=== PATIENT | male | born 1970 | race Caucasian/White ===

== ENCOUNTER 2020-02-01 07:59 | Outpatient (CLI) | payer OTHER, SELFPAY ==
--- NOTE | 2020-02-01 08:00 | USCV_ITS ---
Ilan Ross Age: 49 Gender: M : 1970 Exam Date: 02/01/2020 08:17 Ordering Phys: Zac Jenkins MD Technologist: Tim Baez [place] [facility] [place]: DYSPNEA ON EXERTION BP: 135 / 80 HR: 92 Rhythm: Sinus Technical Quality: Adequate MEASUREMENTS (Male / Female) Normal Values 2D ECHO LVOT Diameter 2.0 cm LV Ejection Fraction MOD 2C 65.5 % LV Ejection Fraction 2C AL 65.6 % LA Diameter 4.4 cm LA Width 4.4 cm LA Height 5.4 cm RA Width 3.4 cm RA Height 5.6 cm Aorta at Sinotubular Diameter 1.3 cm M-MODE LV Diastolic Diameter MM 4.9 cm 4.2 - 5.9 / 3.9 - 5.3 cm LV Systolic Diameter MM 3.3 cm LV Ejection Fraction MM Teich 62.2 % IVS Diastolic Thickness MM 1.2 cm 0.6 - 1.0 / 0.6 - 0.9 cm IVS Systolic Thickness MM 1.6 cm LVPW Diastolic Thickness MM 1.3 cm 0.6 - 1.0 / 0.6 - 0.9 cm LVPW Systolic Thickness MM 1.9 cm RV Diastolic Diameter MM 2.7 cm Aortic Annulus Diameter 4.7 cm LA Ao Ratio MM 0.9 MV E Point Septal Separation 0.5 cm DOPPLER AV Peak Velocity 104.0 cm/s MV Area PHT 3.7 cm squared Mitral E to A Ratio 1.4 MV E' Velocity 46.0 cm/s Mitral E to MV E' Ratio 5.8 Mitral E to LV E' Lateral Ratio 5.5 Mitral E to LV E' Septal Ratio 6.2 TR Peak Velocity 210.0 cm/s TR Peak Gradient 17.6 mmHg TV Peak E Velocity 93.0 cm/s Right Atrial Pressure 5.0 mmHg Pulmonary Artery Systolic Pressu 22.6 mmHg PV Peak Velocity 100.0 cm/s FINDINGS Left Ventricle Normal left ventricular cavity size. Normal left ventricular systolic function. No regional wall motion abnormalities. Left ventricular ejection fraction is estimated at 62 %. Grade II/IV diastolic dysfunction, moderately elevated filling pressures. Right Ventricle The right ventricle is normal in size and function. Right Atrium The right atrium is normal in size. Left Atrium The left atrium is normal in size. Mitral Valve Structurally normal mitral valve without significant stenosis or prolapse. There is no mitral regurgitation. Aortic Valve Mild aortic valve calcification. No aortic valve stenosis. Trace aortic valve regurgitation. Tricuspid Valve Trace to mild tricuspid valve regurgitation. Pulmonic Valve Structurally normal pulmonic valve without significant stenosis. There is no pulmonic regurgitation. Pericardium Normal pericardium without effusion. Aorta Normal ascending aorta dimension. CONCLUSIONS 1-Normal left ventricular cavity size. Normal left ventricular systolic function. No regional wall motion abnormalities. Left ventricular ejection fraction is estimated at 62 %. Grade II/IV diastolic dysfunction, moderately elevated filling pressures. 2-Mild aortic valve calcification. No aortic valve stenosis. Trace aortic valve regurgitation. 3-Trace to mild tricuspid valve regurgitation. 4-There is no pericardial effusion. 5-Pulmonary artery systolic pressure is within normal limits. 6-Right atrial pressure is around 5 mm of mercury. 7-No significant change since the prior echocardiogram study of 02/15/2015.. Zac Jenkins MD (Electronically Signed) Final Date: 01 February 2020 20:08 S
== END 2020-02-01 08:00 | disposition home or self-care (01) ==
LOC: US 08:02
PROVIDERS: PCP Family Medicine; Visit Provider Internal Medicine Cardiovascular Disease
DX: R06.00 Dyspnea, unspecified (principal); I35.1 Nonrheumatic aortic (valve) insufficiency; I07.1 Rheumatic tricuspid insufficiency
CPT/HCPCS: 93306

== ENCOUNTER 2020-06-03 18:39 | Inpatient (IN) | payer OTHER, SELFPAY ==
[2020-06-03 18:59] VITALS: BP 142/96; PULSE 74; RESP 25; TEMP 36.7; O2SAT 99; BMI 40.4
--- NOTE | 2020-06-03 19:10 | ECG_ITS ---
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 Measurements Intervals [place] Rate: 87 P: SD: QRS: 34 QRSD: 109 T: 95 QT: 347 QTc: 419 Interpretive Statements ATRIAL FIBRILLATION NONSPECIFIC T-WAVE ABNORMALITY Compared to ECG 02/15/2015 05:58:28 T-wave abnormality now present Sinus rhythm no longer present Myocardial infarct finding no longer present Electronically Signed On 06-04-2020 17:04:44 APIARIST by Godwin Wilkes M.D. [id number]
--- NOTE | 2020-06-03 19:10 | XRR_ITS ---
PROCEDURE INFORMATION: Exam: XR Chest, 1 View Exam date and time: 06/03/2020 7:12 PM Age: 50 years old Clinical indication: Chest pain; Additional info: Cp TECHNIQUE: Imaging protocol: XR of the chest Views: 1 view. COMPARISON: CT chest [facility] [id number] 03/12/2016 7:51 AM FINDINGS: Lungs: Unremarkable. No consolidation. Pleural spaces: Unremarkable. No pleural effusion. No pneumothorax. Heart/Mediastinum: Unremarkable. No cardiomegaly. Bones/joints: Unremarkable. XR/XR chest 1V portable [id number] IMPRESSION: No acute findings.
--- NOTE | 2020-06-03 19:13 | ED_ITS ---
HPI - Chest Pain General: Chief Complaint: Chest Pain Stated Complaint: chest pain Time Seen by Provider: 06/03/20 18:57 History of Present Illness: HPI narrative: 50-year-old male presenting with chest discomfort. He has a history of atrial fibrillation and coronary artery disease status post stents x4. His last cath was 5 years ago. No stress testing since. He has been doing well otherwise, but tested positive for COVID- 19 earlier in the month. He has passed his quarantine and had essentially recovered. The pain radiates to his jaw and down his right arm, he was nauseated, diaphoretic, and short of breath. Pain was 8 out of 10 on arrival currently 3 out of 10. 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 THERAPIST Onset (ago): hour(s) Timing of current episode: constant Prior episodes: Yes Onset: during rest Pain location: substernal Pain radiation: right arm and jaw/teeth Severity: moderate Quality: tightness, aching and heaviness Relieving factors: nothing Exacerbating factors: exertion Context: recent illness Associated symptoms: Reports diaphoresis, dyspnea and nausea; Deny abdominal pain, fever(s), leg edema, palpitations or vomiting Review of Systems Const: Reports: diaphoresis; Denies: fever(s) Eyes: Denies: change in vision ENMT: Denies: odynophagia or sinus pain Card: Denies: palpitations Resp: Reports: dyspnea GI: Reports: nausea; Denies: abdominal pain or vomiting : Denies: difficulty urinating, dysuria or hematuria Musc: Denies: neck pain or joint warmth Skin/Breast: Denies: rash, pruritus or erythema Neuro: Reports: dizziness; Denies: headache(s) or vertigo Psych: Denies: anxiety PFSH ED PFSH: Medical History CAD (coronary artery disease) Appear to be stable from a coronary disease perspective continue current regimen stop Effient since patient has been many years continue aspirin CHF (congestive heart failure) Dyslipidemia hypertriglyceridemia and mixed lipidemia HTN (hypertension) Myocardial infarct Obesity Tobacco abuse Type 2 diabetes mellitus Surgical History History of arthroplasty of left ankle Hx of heart artery stent Family History Father CAD (coronary artery disease) Stroke Diabetes Grandfather CAD (coronary artery disease) Diabetes Brother Diabetes Sister Diabetes Social History Smoking and tobacco status: former smoker Quit status (tobacco): has quit using tobacco Second hand smoke exposure: No Alcohol intake: never Physical Exam Const: GENERAL APPEARANCE: cooperative, well developed and ill appearing ORIENTATION/CONSCIOUSNESS: Yes oriented to person, Yes oriented to place and Yes oriented to time HENMT: COMMON NORMALS: normocephalic, external ears normal and Normal external nose present HEAD & SCALP: normocephalic; no scalp tenderness FACE & SINUS: normal facial exam NOSE: Normal external nose present and No nasal discharge present EXTERNAL EAR: Yes external ears normal Eye: COMMON NORMALS: Equal, round and reactive pupils present, EOMs intact bilaterally and conjunctivae normal EYELID: eyelids normal CONJUNCTIVA: Yes conjunctivae normal PUPIL: Yes Equal, round and reactive pupils present Neck/C-Spine: GENERAL: No tracheal deviation Chest: COMMONS NORMALS: normal inspection of the chest CHEST: No tenderness Resp: COMMON NORMALS: clear to auscultation bilaterally EFFORT & INSPECTION: No tachypneic, No respiratory distress, No retractions, No uses accessory muscles and No tracheal deviation AUSCULTATION: clear to auscultation bilaterally, no rhonchi, no wheezes and lung sounds not diminished Cardio: RHYTHM: abnormal rhythm irregularly irregular HEART SOUNDS: no murmurs PERIPHERAL PULSES: radial pulses present GI: INSPECTION: No abdominal distension AUSCULTATION: No Hyperactive bowel sounds present and No Hypoactive bowel sounds present PALPATION: No Guarding due to palpation present (GI) and No Rigid due to palpation PERCUSSION: no dullness to percussion and no tympanic to percussion Neuro: SENSORIUM/ORIENTATION: Yes oriented to person, Yes oriented to place and Yes oriented to time Psych: COMMON NORMALS: mental status grossly normal Skin: COMMON NORMALS: no rashes or lesions noted GENERAL SKIN EXAM: no rashes or lesions noted Course Consultations: Consultation #1: [email or web address] Vital Signs: Vital signs: Vital Signs Temperature 98.1 F 06/04/20 01:55 Pulse Rate 96 06/04/20 02:45 Respiratory Rate 16 06/04/20 02:45 Blood Pressure 122/85 06/04/20 02:45 Pulse Oximetry 94 06/04/20 02:45 MDM - Chest Pain MDM Narrative: Medical decision making narrative: 50-year-old male with a history of coronary disease presenting with chest discomfort. He was hypertensive as well. He was given nitroglycerin and aspirin on arrival with transient improvement in his pain with nitroglycerin. However, his pain rebounded after each sublingual dose. Nitropaste was placed and he was given morphine for pain, which helped the pain some but did not take it away. His blood pressure kept creeping up throughout his visit, and his pain returned, so nitroglycerin drip was started. This improved his blood pressure and his pain. His 2-hour troponin crept up some as well. His EKG at 0 and 2 hours showed atrial fibrillation with a controlled rate, no acute ST changes. He was given an injection of Lovenox and admitted to the [facility]. Hospitalist has seen the patient in the ER. Lab Data: Labs: Lab Results 06/03/20 06/03/20 06/03/20 Range/Units 19:30 19:30 19:30 WBC 8.1 (4.0-10.0) 10^3/ uL RBC 4.74 (4.1-5.3) 10^6/u L Hgb 13.9 (11.7-16.6) g/dL Hct 40.4 L (42.0-52.0) % MCV 85.2 (80-94) fL MCH 29.3 (28.0-34.0) pg MCHC 34.4 (30.0-36.0) g/dL RDW 11.5 L (12.1-15.1) % Plt Count 374 (130-400) 10^3/c mm MPV 9.3 (7.4-10.4) fL Neut % (Auto) 67.2 % Lymph % (Auto) 19.4 % Banks % (Auto) 9.1 % Eos % (Auto) 2.3 % Baso % (Auto) 1.0 % Neut # (Auto) 5.44 (1.8-7.7) 10^3/u L Lymph # (Auto) 1.6 (0.8-4.8) 10^3/u L Banks # (Auto) 0.7 (0.2-0.9) 10^3/u L Eos # (Auto) 0.2 (0.0-0.8) 10^3/u L Baso # (Auto) 0.1 (0.0-0.1) 10^3/u L Nucleated RBC % (a uto) 0 % Nucleated RBCs # 0.0 /100WBC PT 15.20 H (12.1-14.9) SECO NDS INR 1.16 (0.8-1.2) APTT 30.9 (23.9-36.7) SECO NDS Sodium 135 L (136-145) mmol/L Potassium 4.7 (3.5-5.1) mmol/L Chloride 100 (98-107) mmol/L Carbon Dioxide 23 (22-29) mmol/L Anion Gap 16.7 (5-19) BUN 22 H (6-20) mg/dL Creatinine 0.9 (0.7-1.2) mg/dL GFR Calculation 89.3 L (90-130) mL/min Glucose 219 H (65-115) mg/dL Calculated Osmolal ity 290 (285-295) mOsm/k g Calcium 9.6 (8.5-10.5) mg/dL Total Bilirubin 0.3 (0.15-1.2) mg/dL AST 35 (0-40) U/L ALT 39 (0-41) U/L Alkaline Phosphata se 74 (40-130) IU/L Creatine Kinase 88 (39-308) U/L Troponin T Baselin e (0-15) ng/L Troponin T 120 Min lumbee (0-15) ng/L Delta Troponin T (0-10) ABS# NT-Pro-B Natriuret Pep 484 H (0-125) pg/mL Total Protein 7.1 (6.6-8.7) g/dL Albumin 3.9 (3.5-5.2) g/dL Globulin 3.2 (1.3-4.6) g/dL 06/03/20 06/03/20 Range/Units 19:30 21:30 WBC (4.0-10.0) 10^3/ uL RBC (4.1-5.3) 10^6/u L Hgb (11.7-16.6) g/dL Hct (42.0-52.0) % MCV (80-94) fL MCH (28.0-34.0) pg MCHC (30.0-36.0) g/dL RDW (12.1-15.1) % Plt Count (130-400) 10^3/c mm MPV (7.4-10.4) fL Neut % (Auto) % Lymph % (Auto) % Banks % (Auto) % Eos % (Auto) % Baso % (Auto) % Neut # (Auto) (1.8-7.7) 10^3/u L Lymph # (Auto) (0.8-4.8) 10^3/u L Banks # (Auto) (0.2-0.9) 10^3/u L Eos # (Auto) (0.0-0.8) 10^3/u L Baso # (Auto) (0.0-0.1) 10^3/u L Nucleated RBC % (a uto) % Nucleated RBCs # /100WBC PT (12.1-14.9) SECO NDS INR (0.8-1.2) APTT (23.9-36.7) SECO NDS Sodium (136-145) mmol/L Potassium (3.5-5.1) mmol/L Chloride (98-107) mmol/L Carbon Dioxide (22-29) mmol/L Anion Gap (5-19) BUN (6-20) mg/dL Creatinine (0.7-1.2) mg/dL GFR Calculation (90-130) mL/min Glucose (65-115) mg/dL Calculated Osmolal ity (285-295) mOsm/k g Calcium (8.5-10.5) mg/dL Total Bilirubin (0.15-1.2) mg/dL AST (0-40) U/L ALT (0-41) U/L Alkaline Phosphata se (40-130) IU/L Creatine Kinase (39-308) U/L Troponin T Baselin e 6 (0-15) ng/L Troponin T 120 Min lumbee 15.17 H (0-15) ng/L Delta Troponin T 9.17 (0-10) ABS# NT-Pro-B Natriuret Pep (0-125) pg/mL Total Protein (6.6-8.7) g/dL Albumin (3.5-5.2) g/dL Globulin (1.3-4.6) g/dL Discharge Plan Discharge Patient Disposition: Placed in Observation Admit Provider: Zac Sorenson Clinical Impression: Chest pain, NSTEMI (non-ST elevated myocardial infarction), HTN (hypertension) Coding Level of Care Code ED Band Saw Operator for Chg Fwd Exam Comprehensive
[2020-06-03] MEDS: nitroglycerin 0.4 mg sublingual Tablet SUBLINGUAL ×2 (19:20→19:30)
[2020-06-03] MEDS: nitroglycerin 1 gm/inch oint Pkt 1 INCH TOPICAL (19:34)
[2020-06-03] MEDS: ondansetron 2 mg/ML SDV 2 mL 4 MG IVP (19:35)
[2020-06-03] MEDS: aspirin 81 mg Chew Tablet 324 MG PO (19:35)
[2020-06-03 19:42] LABS: Basophils # 0.1 10^3/uL (0.0-0.1); Eosinophils # 0.2 10^3/uL (0.0-0.8); Eosinophils % 2.3 %; Hematocrit 40.4 % (42.0-52.0); Hemoglobin 13.9 g/dL (11.7-16.6); Lymphocytes # 1.6 10^3/uL (0.8-4.8); Lymphocytes % 19.4 %; Mean Corpuscular HGB Conc 34.4 g/dL (30.0-36.0); Mean Corpuscular Hemoglobin 29.3 pg (28.0-34.0); Mean Corpuscular Volume 85.2 fL (80-94); Mean Platelet Volume 9.3 fL (7.4-10.4); Monocytes # 0.7 10^3/uL (0.2-0.9); Monocytes % 9.1 %; Neutrophils # 5.44 10^3/uL (1.8-7.7); Neutrophils % 67.2 %; Nucleated Red Blood Cells % 0 %; Platelet Count 374 10^3/cmm (130-400); Red Blood Count 4.74 10^6/uL (4.1-5.3); Red Cell Distribution Width 11.5 % (12.1-15.1); White Blood Count 8.1 10^3/uL (4.0-10.0)
[2020-06-03 19:51] VITALS: BP 134/108; PULSE 91; RESP 13; O2SAT 95
[2020-06-03 20:04] LABS: Partial Thromboplastin Time 30.9 SECONDS (23.9-36.7)
[2020-06-03] MEDS: morphine 4 mg/mL SDV 1 mL IVP ×2 (20:06→23:21)
[2020-06-03 20:09] LABS: Troponin(5th) Baseline 6 ng/L (0-15)
[2020-06-03 20:16] LABS: INR 1.16 (0.8-1.2)
[2020-06-03 20:18] LABS: Alanine Aminotransferase 39 U/L (0-41); Albumin Level 3.9 g/dL (3.5-5.2); Alkaline Phosphatase 74 IU/L (40-130); Anion Gap 16.7 (5-19); Aspartate Amino Transferase 35 U/L (0-40); Blood Urea Nitrogen 22 mg/dL (6-20); Calcium 9.6 mg/dL (8.5-10.5); Carbon Dioxide 23 mmol/L (22-29); Chloride 100 mmol/L (98-107); Creatine Phosphokinase 88 U/L (39-308); Globulin 3.2 g/dL (1.3-4.6); Glomerular Filtration Rate 89.3 mL/min (90-130); Glucose 219 mg/dL (65-115); NT Pro B Type Natriuretic Pept 484 pg/mL (0-125); Osmolality Calculated 290 mOsm/kg (285-295); Potassium 4.7 mmol/L (3.5-5.1); Sodium 135 mmol/L (136-145); Total Bilirubin 0.3 mg/dL (0.15-1.2); Total Protein 7.1 g/dL (6.6-8.7)
[2020-06-03 20:24] VITALS: BP 170/115; PULSE 85; RESP 14; O2SAT 97
--- NOTE | 2020-06-03 20:50 | CTR_ITS ---
PROCEDURE INFORMATION: Exam: CT Angiography Chest With Contrast Exam date and time: 06/03/2020 9:17 PM Age: 50 years old Clinical indication: Chest pain; Type not specified; Patient HX: C/O cp TECHNIQUE: Imaging protocol: Computed tomographic angiography of the chest with contrast. 3D rendering (Not supervised by radiologist): MIP and/or 3D reconstructed images were created by the technologist. Radiation optimization: All CT scans at this facility use at least one of these dose optimization techniques: automated exposure control; mA and/or kV adjustment per patient size (includes targeted exams where dose is matched to clinical indication); or iterative reconstruction. Contrast material: OMNI 350; Contrast volume: 90 ml; Contrast route: INTRAVENOUS (IV); COMPARISON: CT chest wo con [id number] 03/12/2016 7:51 AM RADIATION DOSE METRICS: Total DLP (mGy-cm): 625.15 FINDINGS: Pulmonary arteries: Normal. No pulmonary emboli. Aorta: Unremarkable. No aortic aneurysm. No aortic dissection. Lungs: Scattered patchy peripheral irregular ground-glass foci noted diffusely in both lungs involving each lobe. Pleural spaces: Unremarkable. No pneumothorax. No pleural effusion. Heart: Unremarkable. No cardiomegaly. No pericardial effusion. Lymph nodes: Mild severity bilateral hilar lymphadenopathy. Bones/joints: Unremarkable. No acute fracture. Soft tissues: Unremarkable. CT/CT angio chest PE protcl [id number] IMPRESSION: 1. Negative for pulmonary embolism. 2. Patchy ground-glass airspace disease in both lungs. The appearance and distribution is nonspecific. However, findings are suspicious for atypical pneumonia such as COVID-19 infection. Radiation Dose CTDIVOL = (mGy): DLP = 625.15 (mGy-cm)
[2020-06-03] MEDS: labetalol 5 mg/mL SDV 20mL 20 MG IVP (20:59)
--- NOTE | 2020-06-03 21:10 | ECG_ITS ---
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 Measurements Intervals [place] Rate: 103 P: SD: QRS: 23 QRSD: 94 T: 126 QT: 349 QTc: 459 Interpretive Statements ATRIAL FIBRILLATION WITH RAPID VENTRICULAR RESPONSE NONSPECIFIC ST & T-WAVE ABNORMALITY Compared to ECG 06/03/2020 18:49:55 No significant changes Electronically Signed On 06-04-2020 17:07:41 REDUCTION FURNACE OPERATOR by Godwin Wilkes M.D. [id number]
[2020-06-03] MEDS: iohexol 350 mg/mL 100 mL Btl IV (21:26)
[2020-06-03 21:56] LABS: Troponin 5 2HR 15.17 ng/L (0-15); Troponin 5 2HR Delta 9.17 ABS# (0-10)
[2020-06-03] MEDS: nitroglycerin drip 50 MG/250 ML PREMIX IV (22:22)
--- NOTE | 2020-06-03 22:54 | PM.HP ---
Providers/Chief Complaint Primary Care Provider: Mic Durand MD Chief Complaint: chest pain History of Present Illness Ilan Ross is a 50 year old male who got diagnosed with COVID-19 11 days ago , patient of Dr. Jenkins for established coronary disease he had chronically totally occluded RCA status post balloon angioplasty, 2 drug eluting stents to obtuse marginal, previous history of stent placement to LAD 2009 which is patent, last angiogram was in , history of atrial fibrillation on chronic anticoagulation with Xarelto, grade 2 diastolic congestive heart failure presented today with chief complaint of chest pain. Patient is stating that his symptoms started when he came back from [facility] after buying some stuff for his truck while doing this unloading and loading his truck he started experiencing chest pain, it improved with rest, initially he attributed his symptoms to indigestion but his chest pain was getting worse he also felt short of breath nauseous and diaphoretic he rated his pain 8/10, it was radiating towards his jaw and right arm. Diagnostics in the ER revealed non-ST segment elevation CA because of delta troponin however EKG showing T wave inversion which is a new change from previous EKG in anterolateral leads he received 3 nitroglycerin which did not relieve his symptoms he was put on Nitropaste and eventually nitro drip nitro drip was running at 10 mics per minute, he was chest pain-free, he was hypertensive as well on admission blood pressure 190/130s at the time of my evaluation blood pressure 140/70mmhg. was saturating well on room air Review of Systems Const: Denies: fever(s) Eyes: Denies: change in vision ENMT: Denies: throat pain Card: Reports: chest pain; Denies: palpitations, dyspnea on exertion or orthopnea Resp: Reports: dyspnea and non-productive cough; Denies: productive cough GI: Denies: abdominal pain : Denies: flank pain Musc: Denies: neck pain Skin/Breast: Denies: skin pain Neuro: Denies: headache(s) Psych: Denies: anxiety Endo: Denies: polyuria Tu/Lymph: Denies: easy bruising All/Imm: Denies: urticaria Medications/Allergies Home Medications Medication Instructions Recorded Confirmed Last Taken Type fenofibrate nanocrystallized 145 145 mg PO QDAY 06/04/19 01/06/20 Unknown History mg tablet losartan 50 mg tablet 50 mg PO QDAY 90 Days #90 tab 06/04/19 06/04/19 Unknown Rx rivaroxaban 20 mg tablet 20 mg PO DAILY #90 tab 06/09/19 01/06/20 Unknown Rx glimepiride 2 mg tablet 2 mg PO DAILY 06/29/19 01/06/20 Unknown History isosorbide mononitrate 30 mg 30 mg PO QAM 90 Days #90 tab 07/08/19 01/06/20 Unknown Rx tablet,extended release 24 hr simvastatin 20 mg tablet 20 mg PO QDAY 90 Days #90 tab 07/08/19 01/06/20 Unknown Rx metoprolol tartrate 25 mg tablet 25 mg PO BID 90 Days #180 tab 07/16/19 01/06/20 Unknown Rx olmesartan 20 mg tablet 20 mg PO DAILY #30 tab 09/08/19 01/06/20 Unknown Rx aspirin 81 mg tablet,delayed 81 mg PO DAILY #90 tab 01/06/20 01/06/20 Unknown Rx release furosemide 20 mg tablet 20 mg PO DAILY #90 tab 01/06/20 01/06/20 Unknown Rx meloxicam 15 mg tablet 15 mg PO DAILY tab 01/06/20 01/06/20 Unknown History metformin 500 mg tablet 500 mg PO BID tab 01/06/20 01/06/20 Unknown History potassium chloride 10 mEq 10 meq PO DAILY #90 tab 01/06/20 01/06/20 Unknown Rx tablet,extended release(part/cryst) Allergies Allergy/AdvReac Type Severity Reaction Status Date / Time apixaban [From Eliquis] Allergy rash, Verified 01/06/20 16:18 throat swelling lisinopril Allergy joint pain Verified 01/06/20 16:20 PFSH Acute PFSH: Medical History CAD (coronary artery disease) Appear to be stable from a coronary disease perspective continue current regimen stop Effient since patient has been many years continue aspirin CHF (congestive heart failure) Dyslipidemia hypertriglyceridemia and mixed lipidemia HTN (hypertension) Myocardial infarct Obesity Tobacco abuse Type 2 diabetes mellitus Surgical History History of arthroplasty of left ankle Hx of heart artery stent Family History Father CAD (coronary artery disease) Stroke Diabetes Grandfather CAD (coronary artery disease) Diabetes Brother Diabetes Sister Diabetes Social History Smoking and tobacco status: former smoker Quit status (tobacco): has quit using tobacco Second hand smoke exposure: No Alcohol intake: never Vitals/I&O/Wt Last Vital Signs Temp 98.1 F 06/03/20 18:59 Pulse 85 06/03/20 20:24 Resp 14 06/03/20 20:24 BP 170/115 06/03/20 20:24 Pulse Ox 97 06/03/20 20:24 06/03/20 06/03/20 06/03/20 06:59 14:59 22:59 Intake Total 0.75 / 0.75 Balance 0.75 / 0.75 Weight last 48 hrs Weight 158.757 kg Physical Exam Narrative: EXAM NARRATIVE: Very pleasant middle-age male who appears more than stated age Morbidly obese Chest pain-free on nitroglycerin drip running at 10 mics per minute currently patient blood pressure is ranging between 120s to 130s Saturating well on room air No active chest pain S1, S2 no murmur appreciated no signs of heart failure Abdomen distended central obesity no tenderness or signs of peritonitis No acute respiratory distress bilateral breath sound without adventitial rhonchi or crackles Awake alert oriented x3 GCS 15 Skin does not show any sign ischemia gangrene ulcer Appropriate mood and affect No joint swelling Data : 06/03/20 19:30 06/03/20 19:30 A&P Assessment and plan (1) NSTEMI (non-ST elevated myocardial infarction): Non-ST segment elevation CA Significant delta troponin with T wave inversion anterolateral leads Chest pain-free on nitroglycerin drip running at 10 mics per minute Considering established coronary disease and for stents we will keep him n.p.o. for possible angiogram in the morning currently no urgent need, still has room to titrate up his nitroglycerin Loaded with aspirin, prasugrel which she has been taking previously as well started ACS protocol, held Xarelto and started him on therapeutic dose of Lovenox We will request echo in the morning Cardiology consult Status: Acute Additional A&P Information Diastolic congestive heart failure clinically does not look fluid overloaded BNP 484, hold Lasix for now Type 2 diabetes: N.p.o. for now we will keep him on insulin sliding scale Atrial fibrillation without RVR Xarelto held currently on therapeutic dose of Lovenox heart rate well controlled I would initiate metoprolol succinate instead of Metroprolol tartrate Full code N.p.o. DVT prophylaxis not indicated Attestations Medical Necessity Statement*: For NSTEMI anticipating stay in the hospital course more than 2 midnights Time Spent in Patient Care: (>than 50% of time spent in counselling and/or direct pt care on unit). 50mins Coding Level of Care Code Acute System Support Developer for [facility] Mark Diagnoses NSTEMI (non-ST elevated myocardial infarction) I21.4
[2020-06-03 23:21] VITALS: RESP 20; O2SAT 94
[2020-06-04] VITALS (70 sets, daily range): BP systolic 112–162; BP diastolic 74–110; PULSE 64–117; RESP 8–25; TEMP 36.6–36.8; O2SAT 89–97
[2020-06-04] MEDS: enoxaparin 120 mg/0.8 mL Syringe SUBCUT (00:40)
--- NOTE | 2020-06-04 01:10 | ECG_ITS ---
[facility] Test Date: 2020-06-04 Pat Name: Ilan Ross Department: Room: 209 Gender: Male Shell Molder: : 1970 Requested By: Bruce Knapp Order Number: [id number] Richi MD: Godwin Wilkes M.D. Measurements Intervals [place] Rate: 97 P: NV: QRS: 27 QRSD: 117 T: 135 QT: 353 QTc: 449 Interpretive Statements ATRIAL FIBRILLATION MODERATE INTRAVENTRICULAR CONDUCTION DELAY [110+ ms QRS DURATION] NONSPECIFIC T-WAVE ABNORMALITY Compared to ECG 06/03/2020 21:35:09 Intraventricular conduction delay now present T-wave abnormality still present Electronically Signed On 06-04-2020 17:06:41 REFRACTORY MIXER by Godwin Wilkes M.D. [id number]
[2020-06-04 01:52] LABS: Troponin 5 6HR 75.48 ng/L (0-15)
[2020-06-04 02:10] LABS: Troponin 5 6HR Delta 69.48 ng/L (0-12)
--- NOTE | 2020-06-04 02:28 | USCV_ITS ---
Ilan Ross Age: 50 Gender: M : 1970 Exam Date: 06/04/2020 09:48 Ordering Phys: Zac Sorenson MD Technologist: Shaylee Diaz Exam Location: [facility] Indication: NSTEMI BP: 129 / 85 HR: 90 Rhythm: Atrial fibrillation Technical Quality: Fair MEASUREMENTS (Male / Female) Normal Values 2D ECHO LV Diastolic Diameter PLAX 4.5 cm 4.2 - 5.9 / 3.9 - 5.3 cm LV Systolic Diameter PLAX 3.1 cm LV Chamber Size 4.2 cm IVS Diastolic Thickness 1.8 cm 0.6 - 1.0 / 0.6 - 0.9 cm IVS Systolic Thickness 1.7 cm LVPW Diastolic Thickness 1.3 cm 0.6 - 1.0 / 0.6 - 0.9 cm LVPW Systolic Thickness 1.8 cm RV Chamber Size 3.3 cm LVOT Diameter 2.0 cm LV Ejection Fraction 2D Teich 59.1 % LV Ejection Fraction MOD 2C 61.4 % LV Ejection Fraction 2C AL 63.9 % LA Diameter 3.0 cm LA Width 3.1 cm LA Height 5.2 cm RA Width 3.2 cm RA Height 5.6 cm Aorta at Sinotubular Diameter 4.2 cm M-MODE LV Diastolic Diameter MM 5.1 cm 4.2 - 5.9 / 3.9 - 5.3 cm LV Systolic Diameter MM 3.2 cm LV Ejection Fraction MM Teich 66.2 % IVS Diastolic Thickness MM 1.5 cm 0.6 - 1.0 / 0.6 - 0.9 cm IVS Systolic Thickness MM 1.8 cm LVPW Diastolic Thickness MM 1.3 cm 0.6 - 1.0 / 0.6 - 0.9 cm LVPW Systolic Thickness MM 1.8 cm RV Diastolic Diameter MM 2.2 cm Aortic Annulus Diameter 4.8 cm LA Ao Ratio MM 0.7 MV E Point Septal Separation 0.3 cm DOPPLER AV Peak Velocity 87.0 cm/s LVOT Peak Velocity 78.0 cm/s AV Area Cont Eq vti 3.2 cm squared AV Area Cont Eq pk 2.9 cm squared MV Area PHT 4.0 cm squared MV E' Velocity 45.0 cm/s Mitral E to MV E' Ratio 5.6 Mitral E to LV E' Lateral Ratio 5.1 Mitral E to LV E' Septal Ratio 6.3 TR Peak Velocity 171.0 cm/s TR Peak Gradient 11.7 mmHg Right Atrial Pressure 3.0 mmHg Pulmonary Artery Systolic Pressu 14.7 mmHg PV Peak Velocity 71.0 cm/s RV Acceleration Time 0.1 s RV Ejection Time 0.3 s RV AcT/ET 0.4 FINDINGS Left Ventricle Normal left ventricular size.LV systolic function is borderline normal with EF of 50 to 55%. No regional wall motion abnormalities are seen. Diastolic function cannot be assessed because of atrial fibrillation. Right Ventricle The right ventricle is normal in size and function. Right Atrium The right atrium is normal in size. Left Atrium The left atrium is normal in size. Mitral Valve Structurally normal mitral valve without significant stenosis or prolapse. There is mild mitral regurgitation. Aortic Valve Structurally normal aortic valve without significant sclerosis or stenosis. There is mild aortic regurgitation. Tricuspid Valve Structurally normal tricuspid valve without significant stenosis tricuspid regurgitation is seen. RVSP is 20 to 25 mmHg. Pulmonic Valve Structurally normal pulmonic valve without significant stenosis. There is no pulmonic regurgitation. Pericardium Normal pericardium without effusion. Aorta Mildly dilated ascending aorta and aortic root. CONCLUSIONS LV systolic function is borderline normal with EF of 50 to 55%. No regional wall motion abnormalities are seen. Diastolic function cannot be assessed because of atrial fibrillation. Mild mitral regurgitation, mild aortic regurgitation and mild tricuspid regurgitation seen. Mildly dilated ascending aorta and aortic root is noted. Compared to prior echocardiogram from 02/01/2020, LV systolic function is slightly decreased however is still normal. Godwin Wilkes MD (Electronically Signed) Final Date: 04 June 2020 18:22 S
--- NOTE | 2020-06-04 02:54 | PC.NURSE ---
PT ARRIVED TO ROOM 204-2. PT IS ON A NITRO DRIP AT 10MCG. PT DENIES CHEST PAIN AT THIS TIME. PT WAS ORIENTATED TO ROOM. PT IS IN A-FIB. VS WNL. WILL CONTINUE TO MONITOR.
[2020-06-04] MEDS: atorvastatin 40 mg Tablet 80 MG PO (03:02)
[2020-06-04] MEDS: prasugrel 10 MG Tablet 60 MG PO (03:43)
[2020-06-04] MEDS: isosorbide mononitrate ER 30 mg Tablet PO (05:03)
[2020-06-04 05:45] LABS: Basophils # 0.1 10^3/uL (0.0-0.1); Basophils % 0.8 %; Eosinophils # 0.2 10^3/uL (0.0-0.8); Eosinophils % 2.6 %; Hematocrit 41.5 % (42.0-52.0); Hemoglobin 13.9 g/dL (11.7-16.6); Lymphocytes # 2.2 10^3/uL (0.8-4.8); Lymphocytes % 28.2 %; Mean Corpuscular HGB Conc 33.5 g/dL (30.0-36.0); Mean Corpuscular Hemoglobin 29.4 pg (28.0-34.0); Mean Corpuscular Volume 87.7 fL (80-94); Mean Platelet Volume 9.8 fL (7.4-10.4); Monocytes # 0.8 10^3/uL (0.2-0.9); Monocytes % 10.4 %; Neutrophils # 4.46 10^3/uL (1.8-7.7); Nucleated Red Blood Cells % 0 %; Platelet Count 363 10^3/cmm (130-400); Red Blood Count 4.73 10^6/uL (4.1-5.3); Red Cell Distribution Width 11.7 % (12.1-15.1); White Blood Count 7.8 10^3/uL (4.0-10.0)
[2020-06-04 06:07] LABS: Anion Gap 16.4 (5-19); Blood Urea Nitrogen 21 mg/dL (6-20); Calcium 8.9 mg/dL (8.5-10.5); Carbon Dioxide 26 mmol/L (22-29); Chloride 100 mmol/L (98-107); Glomerular Filtration Rate 102.3 mL/min (90-130); Glucose 142 mg/dL (65-115); Osmolality Calculated 291 mOsm/kg (285-295); Potassium 4.4 mmol/L (3.5-5.1); Sodium 138 mmol/L (136-145)
--- NOTE | 2020-06-04 07:01 | PC.NURSE ---
PT IS RESTING IN BED. DENIES PAIN AT THIS TIME. WILL CONTINUE TO MONITOR.
[2020-06-04] MEDS: losartan 50 mg Tablet PO (08:34)
[2020-06-04] MEDS: enoxaparin 80 mg/0.8 mL Syringe 160 MG SUBCUT ×2 (08:34→20:57)
[2020-06-04] MEDS: metoprolol succinate ER (24 HR) 50 mg Tablet PO (08:35)
[2020-06-04] MEDS: prasugrel 10 MG Tablet PO (08:35)
[2020-06-04] MEDS: potassium chloride ER 10 mEq Tablet PO (08:35)
[2020-06-04] MEDS: aspirin 81 mg EC Tablet PO (08:35)
--- NOTE | 2020-06-04 10:07 | PC.NURSE ---
patient does want to have flu and pneumonia vaccine closer to discharge.
--- NOTE | 2020-06-04 10:27 | PC.NURSE ---
admission assessment was attempted to be documented, would only show up as an intervention. IT emailed via portal.
--- NOTE | 2020-06-04 11:37 | PM.PN ---
Subjective Subjective: Interval history: Admitted overnight for chest pain. He is currently in viral unit. Currently on nitro drip. States he has had chest pain on and off overnight but has not had any further chest pain for last 2 to 3 hours. Chest pain is usually affected with nausea but no vomiting. Currently his heart rate is ranging between 95-110 bpm irregular. He denies of having any shortness of breath. Patient states he was tested Covid positive on May 21(confirmed by looking at a picture on his phone of the test result), also states he was told to be off quarantine from May 27. He denies of having difficulty in breathing, headache, nausea, vomiting. States appetite is appropriate. Currently saturating 95% on room air. Vitals/I&O/Wt Last Vital Signs Temp 98.1 F 06/04/20 06:00 Pulse 107 H 06/04/20 11:15 Resp 15 06/04/20 11:00 BP 155/107 06/04/20 11:15 Pulse Ox 95 06/04/20 11:15 06/03/20 06/04/20 06/04/20 22:59 06:59 14:59 Intake Total 0.75 / 0.75 Output Total 300 / 300 Balance 0.75 / 0.75 -300 / -300 Weight last 48 hrs Weight 158.757 kg Physical Exam Narrative: EXAM NARRATIVE: Very pleasant middle-age male who appears more than stated age, on nitro drip Morbidly obese Chest: Normal vesicular breath sounds all over the lung floyd, occasional crackles,Saturating well on room air Cardiovascular: S1, S2 no murmur appreciated no signs of heart failure Abdomen: Distended central obesity no tenderness or signs of peritonitis Neurological: Awake alert oriented x3 GCS 15 Skin does not show any sign ischemia gangrene ulcer Appropriate mood and affect No joint swelling Data : 06/04/20 04:00 06/04/20 04:00 A&P Assessment and plan (1) NSTEMI (non-ST elevated myocardial infarction): Status: Acute (2) CAD (coronary artery disease): Status: Acute (3) CHF (congestive heart failure): Status: Acute (4) Atrial fibrillation: Status: Acute (5) HTN (hypertension): Status: Acute (6) COVID-19: Status: Acute Additional A&P Information NSTEMI: History of CAD: Post PCI in 2019. Typical chest pain with positive concerning delta of troponin. Currently on nitro drip. Continue with aspirin, fenofibrate, statin, metoprolol, Imdur Patient was given Effient today morning. For now stop. Case discussed with cardiology. As patient is 14 days post COVID-19 positive result he is off isolation. Plan for cardiac catheterization today morning. Continue NPO. Echocardiogram. Check HbA1c, lipid panel. COVID-19: Currently saturating well on room air. CT results appreciated. Start patient on vitamin C, zinc. Tessalon Perles as needed. Maintain saturation over 90%. Patient states he was tested +14 days ago and has been told to be off isolation by the state on May 27. As patient is 2-week post COVID-19 result we will move him to cardiac stepdown unit. Off isolation. Hypertension: Goal blood pressure less than 140/90 of Hg. Blood pressure elevated. For now continue with Imdur 30 mg, losartan 50 mg. Patient's heart rate has been on the higher side so we will increase metoprolol to 75 mg twice daily. If blood pressure continues to remain on the higher side and patient continues to have chest pain can up the dose of Imdur. Congestive heart failure: Last echocardiogram from January 2020 shows an EF of 62% with grade 2 diastolic dysfunction with mild TR. Given non-ST ovation IN for now we will repeat echocardiogram. Patient euvolemic at present. Strict input output charting, daily weights. Atrial fibrillation: Metoprolol as above. Patient is on full dose Lovenox for now. Most likely will continue for 24 hours post procedure and then can transition back to home dose of Xarelto. Type 2 diabetes mellitus: Insulin sliding scale at moderate dose. Full code Carb consistent cardiac post procedure. Full dose Lovenox also for DVT prophylaxis. Attestations Medical Necessity Statement*: Requires further hospitalization for management of non-ST elevation IN in setting of CAD and recent COVID-19 pneumonia along with atrial fibrillation with ongoing chest pain Time Spent in Patient Care: Greater than 35 minutes (>than 50% of time spent in counselling and/or direct pt care on unit). Coding Level of Care Code Acute Validation Scientist for [facility] Diagnoses NSTEMI (non-ST elevated myocardial infarction) I21.4 CAD (coronary artery disease) I25.10 CHF (congestive heart failure) I50.9 Atrial fibrillation I48.91 HTN (hypertension) I10 COVID-19 U07.1
[2020-06-04] MEDS: metoprolol tartrate 25 mg Tablet PO (11:57)
--- NOTE | 2020-06-04 12:14 | PM.CONSULT ---
Providers/Reason For Consult Consulting Physican/Specialty*: Godwin Wilkes MD/ Cardiology Reason for Consult*: NSTEMI Attending Physician: Hector Benítez MD Primary Care Provider: Mic Durand MD History of Present Illness History of Present Illness Ilan Ross is a 50 year old male with past medical history of hypertension, coronary artery disease s/p PCI last year, atrial fibrillation on Xarelto, diastolic congestive heart failure presented last night to the hospital with complaints of chest pain. According to patient he was in towards his truck yesterday evening when he started noticing severe substernal chest pain. It was severe pressure and radiated to the jaw and right arm. Initially improved with rest however kept coming back and that is when he decided to come to the hospital. In the hospital pain was not relieved with sublingual nitros and was started on nitro drip. His initial troponin was 15 that trended up significantly to 75. EKG showed atrial fibrillation with a heart rate of 103 bpm. No significant ischemic changes are seen. Of note patient had been diagnosed with Covid on the May 21 and according to primary team he has completed his quarantine. His symptoms that started about a week prior to his diagnosis. No longer symptomatic. Review of Systems Narrative: CONSTITUTIONAL: No fever chills weight loss or gain or night sweats. [] HEENT: Normocephalic, atraumatic.[] RESPIRATORY: No cough, sputum, hemoptysis or wheezing.[] CARDIOVASCULAR: No shortness of breath, chest pain, PND, orthopnea, lower extremity edema, presyncope or syncope. [] GI: no nausea vomiting diarrhea. [] OPERATIONS INTELLIGENCE: No numbness, tingling, weakness or loss of function in any part of the body. [] MUSCULOSKELETAL: No knee or joint pain or rashes. [] Meds/Allergies Home Medications and Allergies Home Medications Medication Instructions Recorded Confirmed Last Taken Type fenofibrate nanocrystallized 145 145 mg PO DAILY@0800 06/04/19 06/04/20 06/04/20 History mg tablet rivaroxaban 20 mg tablet 20 mg PO DAILY #90 tab 06/09/19 06/04/20 Unknown Rx glimepiride 2 mg tablet 2 mg PO DAILY 06/29/19 06/04/20 Unknown History simvastatin 20 mg tablet 20 mg PO QDAY 90 Days #90 tab 07/08/19 06/04/20 Unknown Rx olmesartan 20 mg tablet 20 mg PO DAILY #30 tab 09/08/19 06/04/20 Unknown Rx aspirin 81 mg tablet,delayed 81 mg PO DAILY #90 tab 01/06/20 06/04/20 06/03/20 Rx release meloxicam 15 mg tablet 15 mg PO DAILY@08 tab 01/06/20 06/04/20 Unknown History metformin 500 mg tablet 500 mg PO BID@08,20 tab 01/06/20 06/04/20 Unknown History potassium chloride 10 mEq 10 meq PO DAILY #90 tab 01/06/20 06/04/20 Unknown Rx tablet,extended release(part/cryst) furosemide [Lasix] 20 mg PO DAILY PRN 06/04/20 06/04/20 Unknown History isosorbide mononitrate 30 mg PO DAILY@199906/04/20 06/04/20 Unknown History metoprolol tartrate 50 mg PO Q12H 06/04/20 06/04/20 Unknown History Allergies Allergy/AdvReac Type Severity Reaction Status Date / Time apixaban [From Eliquis] Allergy rash, Verified 01/06/20 16:18 throat swelling lisinopril Allergy joint pain Verified 01/06/20 16:20 Current Medications Current Medications Generic Name Dose Route Start Last Admin Trade Name Freq PRN Reason Stop Dose Admin Aspirin 81 mg 06/04/20 09:00 06/04/20 08:35 Aspirin 81 Mg Ec Tablet PO 81 mg DAILY AWAIS Administration Enoxaparin Sodium 160 mg 06/04/20 09:00 06/04/20 08:34 Enoxaparin 80 Mg/0.8 Ml Syringe SUBCUT 160 mg Q12H AWAIS Administration Nitroglycerin/Dextrose 50 mg in 250 mls @ 0 mls/hr 06/03/20 22:15 06/03/20 22:52 Nitroglycerin Drip IV 10 mcg/min .Q0M AWAIS 3 mls/hr Titration Protocol Per Protocol Isosorbide Mononitrate 30 mg 06/04/20 06:00 06/04/20 05:03 Isosorbide Mononitrate Er 30 Mg Tablet PO 30 mg QAM AWAIS Administration Losartan Potassium 50 mg 06/04/20 09:00 06/04/20 08:34 Losartan 50 Mg Tablet PO 50 mg DAILY AWAIS Administration Nitroglycerin 0.4 mg 06/03/20 19:10 06/03/20 19:30 Nitroglycerin 0.4 Mg Sublingual Tablet SUBLINGUAL 1 tab Q5M PRN Administration CHEST PAIN Potassium Chloride 10 meq 06/04/20 09:00 06/04/20 08:35 Potassium Chloride Er 10 Meq Tablet PO 10 meq DAILY AWAIS Administration PFSH Acute PFSH: Medical History CAD (coronary artery disease) Appear to be stable from a coronary disease perspective continue current regimen stop Effient since patient has been many years continue aspirin CHF (congestive heart failure) Dyslipidemia hypertriglyceridemia and mixed lipidemia HTN (hypertension) Myocardial infarct Obesity Tobacco abuse Type 2 diabetes mellitus Surgical History History of arthroplasty of left ankle Hx of heart artery stent Family History Father CAD (coronary artery disease) Stroke Diabetes Grandfather CAD (coronary artery disease) Diabetes Brother Diabetes Sister Diabetes Social History Smoking and tobacco status: former smoker Quit status (tobacco): has quit using tobacco Second hand smoke exposure: No Alcohol intake: never Vitals/I&O/Wt Last Vital Signs Temp 98.1 F 06/04/20 06:00 Pulse 107 H 06/04/20 11:15 Resp 15 06/04/20 11:00 BP 155/107 06/04/20 11:15 Pulse Ox 95 06/04/20 11:15 06/03/20 06/04/20 06/04/20 22:59 06:59 14:59 Intake Total 0.75 / 0.75 Output Total 300 / 300 Balance 0.75 / 0.75 -300 / -300 Weight last 48 hrs Weight 350 lb Physical Exam Narrative: EXAM NARRATIVE: GENERAL: Patient is alert, awake and oriented x3. [] NECK: No jugular vein distension. [] HEENT: No cyanosis. No icterus. No pallor. [] HEART: Regular S1 and S2. No murmur, rub or gallop. [] LUNGS: Clear to auscultate bilaterally. [] ABDOMEN: Soft, nontender and nondistended. Positive bowel sounds. No guarding, rebound or tenderness. [] CENTRAL NERVOUS SYSTEM: Grossly nonfocal. [] EXTREMITIES: Lower extremities with no edema bilaterally. Pulses palpable in the lower extremities, both dorsalis pedis and posterior tibial. [] A&P Assessment and plan (1) NSTEMI (non-ST elevated myocardial infarction): Status: Acute (2) CHF (congestive heart failure): Status: Acute (3) CAD (coronary artery disease): Status: Acute (4) HTN (hypertension): Status: Acute (5) Atrial fibrillation: Status: Acute Patient has NSTEMI with typical symptoms and troponin elevation with a significant delta. He was loaded with Effient last night. He is on aspirin. He also takes Xarelto for atrial fibrillation. We will proceed with coronary angiography with possible percutaneous coronary intervention. Risk of the procedure have been discussed with the patient. He understands the risks and benefits and wants to proceed with the procedure. Order echocardiogram Given patient will be on anticoagulation with Xarelto, we will switch his Effient to Plavix tonight and continue aspirin for now. UpTitrate beta-blockers as tolerated. High intensity statin therapy Thank you for involving us with the care of this patient. We will continue to follow. Please call with questions. Coding Level of Care Code Acute Piercing Machine Operator for [facility] Diagnoses NSTEMI (non-ST elevated myocardial infarction) I21.4 CHF (congestive heart failure) I50.9 CAD (coronary artery disease) I25.10 HTN (hypertension) I10 Atrial fibrillation I48.91
[2020-06-04] MEDS: sodium chloride 0.9% 1,000 ML 50 ML IV (12:17)
--- NOTE | 2020-06-04 12:35 | PC.NURSE ---
patient transported via wheelchair to laboratory courier. report was called to [facility]. patient belongings will be taken to [facility] room 104.
--- NOTE | 2020-06-04 12:41 | XACV_ITS ---
Exam Room: [facility] Ht: 198 cm Wt: 159 kg BSA: 3.01 m2 Gender: Male : 1970 Any Known Allergies: Other Exam Priority: Routine Procedure(s): Procedure Description: Diagnostic procedure Procedure Description: Left Heart Catheterization Procedure Description: Left ventriculography Procedure Description: Coronary Angiography Diagnostic Cath Status: Urgent Diagnostic Findings * LM is a large vessel. There is no significant stenosis. . * LAD has an old stent in the proximal vessel. It is patent. No significant stenosis is seen. It gives rise to 3 diagonal vessels. Third diagonal artery vessel and has significant distal stenosis. * CX is a large vessel. It has an OM1 stent and a large OM 2 which has a proximal vessel stent. Both are patent. Mild luminal irregularities are seen however no significant stenosis. . * RCA used to be a totally occluded vessel on past angiogram. It had undergone balloon angioplasty in the past. It is a diffusely diseased vessel. There is a large aneurysmal segment in the mid vessel. Post aneurysmal segment there is a heavily calcified 60% stenosis. Overall it is small to medium sized vessel. mRCA: Moderate 60% stenosis, PIERCE: 3 flow. * Coronary angiography shows right dominance. Conclusions 1. There is mid RCA heavily calcified stenosis and a diffusely diseased small to medium sized RCA.. 2. Normal left ventricular systolic function. Ejection fraction of 50% with hypokinesis of apical inferior wall. Recommendations * Given troponin elevation, will treat medically as NSTEMI. No significant culprit lesion is seen. * Patient on Eliquis for * atrial fibrillation. * At time of discharge * will need * Eliquis and Plavix.. * High intensity statin. * IV Anticoagulation for 48 hours. * Strict blood pressure and diabetes control. Interventional RX Recommendation: medical therapy and/or counseling Diagnostic RX Recommendation: medical therapy and/or counseling Ventriculography Ejection Fraction: 50.0 % Pressures Phase:Rest AO : 128 / 99 ( 113 ) @ 7:08:00 AM 120 / 98 ( 108 ) @ 7:13:00 AM 132 / 91 ( 107 ) @ 7:19:00 AM 146 / 69 ( 104 ) @ 7:19:00 AM 136 / 98 ( 114 ) @ 7:19:00 AM LV : 163 / -13 / @ 7:17:00 AM 148 / -9 / @ 7:19:00 AM 155 / -10 / @ 7:19:00 AM Valves Phase:DefaultPhase AV : 13.0 @ 1:43:12 PM AV Mean Gradient: 16.0 @ 1:43:12 PM Clinical Evaluation EBL: 5mL-10mL Procedural Details Procedure Consent Obtained. Pre-Procedure Time Out. Identified patient by full name and date of as verbalized by the patient/guarantor. Does the consent match the physician's order: Yes. Accurate & Complete Informed Consent: Yes. Inpatient/Outpatient History & Physical on Chart: Yes. If H&P is completed, is and addenduem needed: No; If yes, is the addendum complete: N/A. Visualize and Verify Site with Patient/Guarantor: N/A. Relevant Radiology Images available: N/A. Pre-op teaching completed and patient verbalized understanding. The risks, benefits, and alternatives of sedation and/or procedure were discussed by physician. The patient agrees to continue. Procedure started. [facility] Clinical Fraility Score: 2: Well. Solo Musician Indications: ACS <= 24 hours. Chest Pain Symptom Assessment: Typical Angina Symptoms. Cardiovascular Instability: No. Correct patient, site and procedure confirmed by cath team. PERRLA. Strong, equal hand crew lead bilaterally. Lungs clear x 5 lobes. IV Site on Arrival: 20 gauge in the right anticubital. Pt arrived with nitro running at 10 mcg/min. IV Fluids: 0.9% NaCl at KVO. 0 mL infused prior to laboratory equipment installer. Pre Procedural Pulses: bilateral radial was 3+. Pre Procedural Pulses: bilateral dorsalis pedis was Doppled. Pre Procedural Pulses: bilateral posterior tibial was Doppled. Oxygen started at 2liters/min via nasal canula. Baseline sample Acquired. HR: 98 BPM. Physician arrived. Equipment: 6F - Femoral. Cardiac Cath Pack. ACIST Manifold Kit Model BT 2000. Heparinized Saline (2 units/mL), 1000 mL bag. Kit, Micropuncture. Physician scrubbed in. Immediate Pre-Procedure Time Out. Correct Patient: Yes; Correct Procedure: Yes; Correct Site: Yes; Correct Patient Position: Yes; Correct Supplies: Yes; Dried Flammable Prep: Yes; Blood Products Available: N/A;. Lidocaine 1% infiltrated to the right groin. Arterial access obtained with micropuncture set. A JJ 6F JL4 100cm Diagnostic Catheter was advanced over the wire and used for Left coronary angiography. Multiple views taken of left coronary artery. Catheter removed over the standard wire. A CRD 6F JR4 100cm Diagnostic Catheter was advanced over the wire and used for Right coronary angiography. Catheter removed over the standard wire. A 6 frisian Angled Pig catheter in over wire. EDP Sample taken: LV 163/-14,4; HR: 107 BPM; SpO2: 99%. LV gram performed in [place] @ 10 mL/second for a total of 30 mL. EDP Sample taken: LV 148/-10,4; HR: 111 BPM; SpO2: 97%. Pullback taken: LV 155/-11,8; AO 132/91(107); Mean: 16mmHg, Peak to Peak: 13mmHg, SEP: 19sec/min; HR: 104 BPM; SpO2: 98%. Catheter removed over the standard wire. Hand injection through sheath. A Angio-Seal Evolution was successful obtaining hemostatsis at the Right Femoral artery insertion site. Lot # [id number]. Manual pressure held at access site. Post Procedure: Pulses reassessed and unchanged. PERRLA. Strong, equal hand crew lead bilaterally. No VTE prophylaxis required. Medication's Wasted: Lidocaine 1% = 6 mL. Physician scrubbed out. Medication's Wasted: Heparin = 1000 units. Medication's Wasted: Other = fentanyl 50 mcg. Total IV fluids: 75 mL. Contrast type used: Omnipaque 300 mgI/mL, 500 mL bottle. Post-op diagnosis: non obstructive CAD. Complications: none. Estimated blood loss: 5mL-10mL. Procedure completed. Patient transferred by bed to 1st floor. Vital chart was stopped. Access Site Site: Right Femoral artery Sheath Size: 6 Fr Hemostasis Method: Angio-Seal VIP ([facility]) Hemostasis Success: Successful Procedure Medications Start: 12:51 PM Stop: 12:51 PM Medication: Benadryl Amount: 50 mg Route: I.V. Start: 12:52 PM Stop: 12:52 PM Medication: Versed Amount: 1 mg Route: I.V. Start: 12:52 PM Stop: 12:52 PM Medication: Fentanyl Amount: 50 mcg Route: I.V. Start: 1:04 PM Stop: 1:04 PM Medication: Versed Amount: 1 mg Route: I.V. I, the attending physician, have reviewed and verified all procedure medications. Yes, all medications given per verbal order History/Risk Factors Hypertension: Yes Dyslipidemia: No Peripheral Arterial Disease (PAD): No Myocardial Infarction (MT): Yes Obesity: Yes Renal Disease: No Tobacco Use: Former Prior Interventions PCI: Yes CABG: No Valve Surgery: No Report Signatures Finalized by Godwin Wilkes MD on 06/12/2020 11:00 AM
--- NOTE | 2020-06-04 12:45 | W.PM.OPSUD ---
Surgery/Procedure H&P Update DATE OF PROCEDURE: June 04, 2020 DATE H&P PERFORMED: 06/04/20 H&P UPDATE INFORMATION: I have reviewed H&P completed within last 30 days, I have examined patient prior to procedure and No changes to prior documentation PREOP DIAGNOSIS: NSTEMI PRIMARY INDICATION FOR PROCEDURE: NSTEMI PLANNED PROCEDURE: Operation Date: 06/04/20 12:15 Proposed Procedures p Cardiac Catheterization(Not Applicable) - Godwin Wilkes M.D PATIENT REASSESSED PRIOR TO SEDATION, WITH NO CHANGE NOTED: Yes PHYSICAL EXAM: alert, oriented x 3 and clear to auscultation bilaterally AIRWAY EVAL/ANESTHESIA PLAN: ASA III, Risks, benefits & alternatives of sedation and/or procedure discussed and Patient agrees to continue as planned
[2020-06-04 15:06] LABS: Troponin T (5th) Once 191 ng/L (0-15)
--- NOTE | 2020-06-04 15:09 | PC.NURSE ---
received from cardiac dye lab technician at 1400 via bed.report received.pt is drowsy but easily awakened.afib at controlled rate.vss.right femoral artery closed in dye lab technician by .right groin site w/drsg dry and intact.no hematoma noted.right leg is warm to touch and with brisk capillary refill.palpable dp pulse noted.instructed in activity restrictions s/p femoral artery procedure..and instructed to notify staff for any bleeding,pain,numbness...or for any concerns at all.pt verb understanding of instructions.
[2020-06-04 16:18] LABS: Estmated Average Glucose 209; Hemoglobin A1C 8.9 % (4.0-6.0)
[2020-06-04 16:24] LABS: Chol HDL Ratio 4.79 mg/dL (1.0-5.00); Cholesterol 139 mg/dL (0-200); HDL Cholesterol 29 mg/dL (60-100); LDL Cholesterol Calculated 40 mg/dL (50-129); Thyroid Stimulating Hormone 3.84 uIU/mL (0.27-4.20); Triglycerides 349 mg/dL (0-150); VLDL Cholestrol Calculation 70 mg/dL (0-30)
[2020-06-04 16:58] LABS: Iron 89 ug/dL (59-158); Percent Saturation 33.9 % (20-50); Total Iron Binding Capacity 262 mcg/dl; Unsaturated Iron Binding 173 ug/dL (112-347)
[2020-06-04] MEDS: ascorbic acid 500 mg Tablet 1000 MG PO (17:13)
[2020-06-04 17:27] LABS: Glucose Point of Care 136 mg/dL (70-110)
[2020-06-04] MEDS: metoprolol tartrate 50 mg Tablet 75 MG PO (20:56)
[2020-06-04] MEDS: clopidogrel 300 mg Tablet PO (20:59)
[2020-06-04 21:03] LABS: Glucose Point of Care 181 mg/dL (70-110)
[2020-06-05] VITALS (7 sets, daily range): BP systolic 123–146; BP diastolic 75–98; PULSE 80–97; RESP 13–18; TEMP 35.9–36.7; O2SAT 93–96
[2020-06-05 04:01] LABS: Basophils % 0.7 %; Eosinophils # 0.1 10^3/uL (0.0-0.8); Eosinophils % 2.4 %; Hematocrit 41.6 % (42.0-52.0); Hemoglobin 13.8 g/dL (11.7-16.6); Lymphocytes # 1.5 10^3/uL (0.8-4.8); Mean Corpuscular HGB Conc 33.2 g/dL (30.0-36.0); Mean Corpuscular Hemoglobin 29.4 pg (28.0-34.0); Mean Corpuscular Volume 88.7 fL (80-94); Mean Platelet Volume 9.2 fL (7.4-10.4); Monocytes # 0.6 10^3/uL (0.2-0.9); Monocytes % 11.7 %; Neutrophils # 3.08 10^3/uL (1.8-7.7); Neutrophils % 57.5 %; Nucleated Red Blood Cells % 0 %; Platelet Count 291 10^3/cmm (130-400); Red Blood Count 4.69 10^6/uL (4.1-5.3); Red Cell Distribution Width 11.7 % (12.1-15.1); White Blood Count 5.4 10^3/uL (4.0-10.0)
[2020-06-05 04:24] LABS: Alanine Aminotransferase 43 U/L (0-41); Albumin Level 3.6 g/dL (3.5-5.2); Alkaline Phosphatase 51 IU/L (40-130); Anion Gap 13.3 (5-19); Aspartate Amino Transferase 41 U/L (0-40); Blood Urea Nitrogen 16 mg/dL (6-20); Calcium 8.8 mg/dL (8.5-10.5); Carbon Dioxide 28 mmol/L (22-29); Chloride 102 mmol/L (98-107); Globulin 3.3 g/dL (1.3-4.6); Glomerular Filtration Rate 119.4 mL/min (90-130); Glucose 149 mg/dL (65-115); Osmolality Calculated 292 mOsm/kg (285-295); Potassium 4.3 mmol/L (3.5-5.1); Sodium 139 mmol/L (136-145); Total Bilirubin 0.4 mg/dL (0.15-1.2); Total Protein 6.9 g/dL (6.6-8.7)
[2020-06-05] MEDS: isosorbide mononitrate ER 30 mg Tablet PO (06:21)
[2020-06-05 06:47] LABS: Glucose Point of Care 153 mg/dL (70-110)
[2020-06-05] MEDS: potassium chloride ER 10 mEq Tablet PO (09:03)
[2020-06-05] MEDS: losartan 50 mg Tablet PO (09:03)
[2020-06-05] MEDS: aspirin 81 mg EC Tablet PO (09:03)
[2020-06-05] MEDS: ascorbic acid 500 mg Tablet 1000 MG PO (09:04)
[2020-06-05] MEDS: metoprolol tartrate 50 mg Tablet 75 MG PO (09:04)
[2020-06-05] MEDS: fenofibrate 145 mg Tablet PO (09:05)
--- NOTE | 2020-06-05 09:14 | PC.CHAP ---
Pastoral Care Encounter/Spiritual Assessment Type of Contact [] Declined warp coiler visit [] Patient/Family/Request visit [] Outpatient visit [] Follow-up visit [] Physician referral [] Code/Alert [x] Routine visit [] Staff referral [] Actively dying [] Patient sleeping [] Family support [] [] Out of room [] Palliative care [] [] Receiving care in room [] Pre-surgical visit [] Trauma [] Long length of stay [] ICU visit [] Other: Relational/Emotional Strength [] Patient feels connected with others/family/visitors/staff [] Distress [] Loneliness/isolation [] Abandonment Spirituality of Patient [x] Person of Bailee [] Attends Sikh of their Bailee [] Believes in Prayer [] Reads Bible or Baptism materials [] There are Spiritual issues to be addressed Sales Office Administrator Interventions [x] Prayer [x] Active listening [x] Non-anxious presence [x] Spiritual/emotional support [] Crisis/trauma care [] Spiritual counseling [] Bereavement support [] Provided bereavement packet [] Provided Bible/devotional materials [] Provided toy/stuffed animal, coloring book to patient or family member [] Provided Communion [] Anointing/[place] [] Salvation [x] Completed spiritual assessment [] Other: Impact on Illness or Injury [] Angry [] Fearful [] Anxious [] Often cries [] Exhaustion [] Unable to work [] Unable to attend christianity [] Unable to walk/stand [] Unable to read [] Unable to drive [] Unable to eat/drink [] Unable to sleep [] Unable to be with family [] Patient intubated [] Other: Summary Patient feeling better- has heart issue and periodically there are little things that must be addressed Time spent with patient 10 min
[2020-06-05] MEDS: enoxaparin 80 mg/0.8 mL Syringe 160 MG SUBCUT (09:18)
--- NOTE | 2020-06-05 10:16 | PM.PN ---
Subjective Subjective: Interval history: Chest pain, shortness of breath or palpitations. He underwent coronary angiography yesterday that showed patent LAD/left circumflex. 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 It has aneurysmal segment after which there is a heavily calcified 60% stenosis. It was a small to medium sized vessel and was decided to treat medically. Vitals/I&O/Wt Last Vital Signs Temp 96.6 F L 06/05/20 07:01 Pulse 80 06/05/20 07:01 Resp 13 06/05/20 07:01 BP 131/95 06/05/20 07:01 Pulse Ox 93 06/05/20 07:01 06/04/20 06/05/20 06/05/20 22:59 06:59 14:59 Intake Total 771.7 / 771.7 300 / 1071.7 120 / 120 Output Total 950 / 1250 300 / 1550 Balance -178.3 / -478.3 0 / -478.3 120 / 120 Weight last 48 hrs Weight 350 lb Physical Exam Narrative: EXAM NARRATIVE: GENERAL: Patient is alert, awake and oriented x3. [] NECK: No jugular vein distension. [] HEENT: No cyanosis. No icterus. No pallor. [] HEART: Regular S1 and S2. No murmur, rub or gallop. [] LUNGS: Clear to auscultate bilaterally. [] ABDOMEN: Soft, nontender and nondistended. Positive bowel sounds. No guarding, rebound or tenderness. [] CENTRAL NERVOUS SYSTEM: Grossly nonfocal. [] EXTREMITIES: Lower extremities with no edema bilaterally. Pulses palpable in the lower extremities, both dorsalis pedis and posterior tibial. [] Data : 06/05/20 03:18 06/05/20 03:18 A&P Assessment and plan (1) NSTEMI (non-ST elevated myocardial infarction): (2) CHF (congestive heart failure): (3) CAD (coronary artery disease): (4) HTN (hypertension): (5) Atrial fibrillation: Patient underwent coronary angiography. RCA has diffuse disease with aneurysmal segment in the mid RCA after which there is a heavily calcified 60% stenosis. We decided to treated it medically. Effient switched to Plavix. Patient will be discharged on Eliquis and Plavix. Patient can be discharged after 48 hours of IV anticoagulation. High intensity statin therapy. Patient will need strict control of blood pressure and diabetes. Echo demonstrates normal LV systolic function. Thank you for involving us with the care of this patient. Patient sees Dr. Jenkins in the clinic. Follow-up with him as outpatient. Attestations Medical Necessity Statement*: Care expected to cross 2 midnights Coding Level of Care Code Acute Farrowing Manager for [facility] Fwd Diagnoses NSTEMI (non-ST elevated myocardial infarction) I21.4 CHF (congestive heart failure) I50.9 CAD (coronary artery disease) I25.10 HTN (hypertension) I10 Atrial fibrillation I48.91
[2020-06-05] MEDS: zinc gluconate 50 mg Tablet PO (10:51)
[2020-06-05 11:14] LABS: Glucose Point of Care 201 mg/dL (70-110)
--- NOTE | 2020-06-05 13:45 | PC.NURSE ---
ambulated down hallways pt walked down hallways without any chest pain or chest discomfort. Pt denies any distress or shortness of breath. He verbalizes of being stiff from laying down.
--- NOTE | 2020-06-05 15:41 | PC.NURSE ---
meds to bed informed pt regarding his discharge meds will be delivered. verbalizes understanding.
[2020-06-05 15:59] LABS: Glucose Point of Care 154 mg/dL (70-110)
--- NOTE | 2020-06-05 18:11 | PC.NURSE ---
Patient discharged home with . Patient education was provided and patient had no questions. Patient's medications were delivered to bedside. Vital signs were stable upon departure.
--- NOTE | 2020-06-05 21:04 | PM.DCS ---
Discharge Providers Date of Admission: 06/04/20 01:50 Date of Discharge: June 05, 2020 Attending Provider at Admission: Zac Sorenson MD Attending Provider at Discharge: Layo Pelaez Primary Care Provider: Mic Durand MD Diagnoses at Discharge Discharge Diagnosis (1) NSTEMI (non-ST elevated myocardial infarction): Status: Acute (2) CAD (coronary artery disease): Status: Acute (3) CHF (congestive heart failure): Status: Acute (4) Atrial fibrillation: Status: Acute (5) HTN (hypertension): Status: Acute (6) COVID-19: Status: Acute Reason for Visit Reason for Visit: chest pain Hospital Course Hospital Course Pleasant 50-year-old gentleman with history of HTN, CAD, status post PCI last year, A. fib, on chronic anticoagulation with Xarelto, diastolic congestive heart failure with preserved ejection fraction was admitted in [facility] due to chest pain and pressure, radiating to the jaw and right arm. Due to recurrent symptoms, not relieved by nitroglycerin required nitroglycerin drip. With increasing troponin XV-75. Noted to have A. fib with RVR, heart rates in the 100s. Of note he had recently completed his COVID-19 quarantine. He was assessed by cardiology and treated for non-STEMI. Underwent coronary angiography stents were noted patent. In RCA noted chronic total occlusion. Underwent balloon angioplasty of this. Due to ectatic nature of the artery stenting not performed. He was managed with therapeutic anticoagulation while in the hospital. On discharge he is transition to Plavix. Aspirin is discontinued. He is continuing on Xarelto. Today he is feeling well. He has been chest pain-free. No issues with access site in the right groin. He was monitored through the day with discharge in the evening. He may potentially return to work on if he is doing well per discussion with cardiology. 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 Jenkins. He is asked for now to discontinue meloxicam. Please reassess whether this medication safe for him to continue. He would benefit from optimization of diabetes. A1c is 8.9. Please reassess renal function at the next visit. Physical Exam Const: COMMON NORMALS: no acute distress and patient oriented x3 HENMT: COMMON NORMALS: oropharynx normal Neck/C-Spine: COMMON NORMALS: no JVD Resp: COMMON NORMALS: normal respiratory effort and clear to auscultation bilaterally AUSCULTATION: clear to auscultation bilaterally Cardio: COMMON NORMALS: no JVD, regular rhythm, S1 normal heart sound present, S2 normal heart sound present and No murmurs present (Cardio) RHYTHM: regular rhythm HEART SOUNDS: S1 normal heart sound present and S2 normal heart sound present GI: COMMON NORMALS: Normal to inspection, nondistended, normoactive bowel sounds present, Soft to palpation and non-tender PALPATION: Yes Soft to palpation Extremity: COMMON NORMALS: no joint enlargement and no pedal edema OTHER: Right groin access dressing intact. No ecchymosis, no swelling or pulsatile mass. Neuro: COMMON NORMALS: patient oriented x3 and moves all extremities Skin: COMMON NORMALS: no rashes or lesions noted GENERAL SKIN EXAM: no rashes or lesions noted Discharge Data Data Completed and Pending: Completed Studies During Hospitalization Category Date Time Status CT angio chest PE protcl [id number] Urge nt Cat Scan 06/03/20 20:50 Completed XR chest 1V giovany ble [id number] Stat Exams 06/03/20 19:10 Completed CV echo complete* [id number] Routine Ultrasound 06/04/20 02:28 Completed Pending at discharge Category Date Time Status MEDICAL TECHNOLOGIST PRN request for service Routin e Exams 06/04/20 12:41 Taken Labs from last 24 hours 06/05/20 06/05/20 06/05/20 15:55 10:56 06:28 WBC RBC Hgb Hct MCV MCH MCHC RDW Plt Count MPV Neut % (Auto) Lymph % (Auto) [place] % (Auto) Eos % (Auto) Baso % (Auto) Neut # (Auto) Lymph # (Auto) [place] # (Auto) Eos # (Auto) Baso # (Auto) Nucleated RBC % (a uto) Nucleated RBCs # Sodium Potassium Chloride Carbon Dioxide Anion Gap BUN Creatinine GFR Calculation Glucose POC Glucose 154 H 201 H 153 H Calculated Osmolal ity Calcium Total Bilirubin AST ALT Alkaline Phosphata se Total Protein Albumin Globulin 06/05/20 06/05/20 03:18 03:18 WBC 5.4 RBC 4.69 Hgb 13.8 Hct 41.6 L MCV 88.7 MCH 29.4 MCHC 33.2 RDW 11.7 L Plt Count 291 MPV 9.2 Neut % (Auto) 57.5 Lymph % (Auto) 27.0 [place] % (Auto) 11.7 Eos % (Auto) 2.4 Baso % (Auto) 0.7 Neut # (Auto) 3.08 Lymph # (Auto) 1.5 [place] # (Auto) 0.6 Eos # (Auto) 0.1 Baso # (Auto) 0.0 Nucleated RBC % (a uto) 0 Nucleated RBCs # 0.0 Sodium 139 Potassium 4.3 Chloride 102 Carbon Dioxide 28 Anion Gap 13.3 BUN 16 Creatinine 0.7 GFR Calculation 119.4 Glucose 149 H POC Glucose Calculated Osmolal ity 292 Calcium 8.8 Total Bilirubin 0.4 AST 41 H ALT 43 H Alkaline Phosphata se 51 Total Protein 6.9 Albumin 3.6 Globulin 3.3 Vitals: Last Vital Signs Temp 98.1 F 06/05/20 15:39 Pulse 82 06/05/20 15:39 Resp 14 06/05/20 15:39 BP 137/84 06/05/20 15:39 Pulse Ox 95 06/05/20 15:39 Discharge Plan Discharge Patient Disposition: Home Condition: Stable Prescriptions: New clopidogrel 75 mg Tablet 75 mg PO BEDTIME Qty: 30 RF: 0 metoprolol tartrate 50 mg Tablet 75 mg PO BID@0900,2100 Qty: 90 RF: 0 fenofibrate nanocrystallized 145 mg tablet 145 mg PO DAILY Qty: 90 RF: 0 Continued glimepiride [Amaryl] 2 mg tablet 2 mg PO DAILY RF: 0 metformin 500 mg tablet 500 mg PO BID@08,20 RF: 0 rivaroxaban 20 mg tablet 20 mg PO DAILY Qty: 90 RF: 3 potassium chloride 10 mEq tablet,ER particles/crystals 10 meq PO DAILY Qty: 90 RF: 3 simvastatin 20 mg tablet 20 mg PO QDAY 90 Days Qty: 90 RF: 3 olmesartan 20 mg tablet 20 mg PO DAILY Qty: 30 RF: 6 isosorbide mononitrate 30 mg Tablet Extended Release 24 Hr 30 mg PO DAILY@1999 RF: 0 Lasix 20 mg Tablet 20 mg PO DAILY PRN (Reason: Edema) RF: 0 Discontinued fenofibrate nanocrystallized [Tricor] 145 mg tablet 145 mg PO DAILY@0800 RF: 0 meloxicam 15 mg tablet 15 mg PO DAILY@08 RF: 0 aspirin [Adult Aspirin Regimen] 81 mg tablet,delayed release (DR/EC) 81 mg PO DAILY Qty: 90 RF: 3 metoprolol tartrate 50 mg Tablet 50 mg PO Q12H RF: 0 Discharge Orders: Discharge Order (Routine); Ordered 06/05/20 Ordered By: Layo Pelaez Referrals: Zac Jenkins MD [Physician] - 1 month (Please keep your appointment with Dr. Jnekins July 14 at 9:00a.m. If you have any questions or need to reschedule. Please call ) Rica Samson FNP [Nurse Practitioner] - 1 week (Please, follow-up with Rica Samson on June 13 at 10:30a.m. If you have any questions or need to reschedule. Please call ) Mic Durand MD [Primary Care Provider] - 4-7 days (Please follow-up with Dr. Durand on June 12 at 3:10p.m. If you have any questions or need to reschedule. Please call ) Discharge Diet: Cardiac and Diabetic Discharge Activity: Increase activity as tolerated and Limit activity as instructed Patient Instructions: Clopidogrel (By mouth), Left Heart Catheterization (DC), Heart Healthy Diet (DC), CHF Stoplight, Chest Pain Stoplight, Post Angiogram Home Care Instructions Activity Restrictions/Additional Instructions: If you experience any persistent chest pain, any development of a pulsatile mass, large bruise, or significant swelling in right groin, severe lower extremity swelling, pain or any other concerning symptoms please seek medical attention without delay. Please discontinue taking aspirin. For now as recommended by the refinery operator polymerization plant please continue to take your Xarelto (resuming it this evening) and in addition the new medication Plavix. Please be aware of increased risk of bleeding and avoid any injury. Please discontinue taking meloxicam as this medication can lead to adverse effects in some instances of chest pain, heart failure, etc. Please do not return to work over the next 2-3 days. If you are doing well, without any additional issues, perhaps return to work on may be okay per discussion with the refinery operator polymerization plant. Please hold evening dose of Imdur if your blood pressure at home is low (less than 110/60). Please continue to work with your primary care doctor to optimize control of your diabetes and high blood pressure. Please note your diabetes would benefit from better control, your A1c was noted as 8.9. Please have your primary care doctor also reassess kidney function at the next visit. Discharge Attestations Time Spent in Discharge Care*: greater than 30 min Quality Metrics Clinical Quality Measures During this hospital stay, did patient experience: AMI Clinical Trial Participant: No Contraindication to aspirin (AMI): Treatment changed Contraindication to statin: Statin prescribed Contraindication to PCI: PCI performed Coding Level of Care Code Acute Transportation Equipment Painter for g Fwd Diagnoses NSTEMI (non-ST elevated myocardial infarction) I21.4 CAD (coronary artery disease) I25.10 CHF (congestive heart failure) I50.9 Atrial fibrillation I48.91 HTN (hypertension) I10 COVID-19 U07.1
== END 2020-06-05 17:22 | disposition home or self-care (01) | DRG 281 ==
LOC: ER 23:16 → MS 2A 06-04 02:57 → CSU 06-05 07:30
PROVIDERS: Internal Medicine; Student in an Organized Health Care Education/Training Program; Admitting Provider Internal Medicine; Emergency Provider Emergency Medicine; PCP Family Medicine; Visit Provider Internal Medicine
PROC: 4A023N7 Measurement of Cardiac Sampling and Pressure, Left Heart, Percutaneous Approach (ICD-10-PCS; principal; 2020-06-04 12:15)
DX: I21.4 Non-ST elevation (NSTEMI) myocardial infarction (principal); I50.32 Chronic diastolic (congestive) heart failure; Z68.41 Body mass index [BMI] 40.0-44.9, adult; I25.10 Atherosclerotic heart disease of native coronary artery without angina pectoris; I48.91 Unspecified atrial fibrillation; Z86.16 Personal history of COVID-19; I11.0 Hypertensive heart disease with heart failure; Z95.5 Presence of coronary angioplasty implant and graft; Z79.01 Long term (current) use of anticoagulants; Z79.82 Long term (current) use of aspirin; Z79.84 Long term (current) use of oral hypoglycemic drugs; E78.5 Hyperlipidemia, unspecified; E11.9 Type 2 diabetes mellitus without complications; E66.9 Obesity, unspecified; I25.2 Old myocardial infarction; Z87.891 Personal history of nicotine dependence
CPT/HCPCS: 12345; 36415; 36416; 71045; 71275; 80048; 80053; 80061; 82550; 82962; 83036; 83540; 83550; 83880; 84443; 84484; 85025; 85610; 85730; 93005; 93306; 93452; 96372; 99283; C1760; C1769; C1887; C1894; J1200; J1644; J1650; J1815; J2250; J2270; J2405; J3010; J3490; J7030; Q9967

== ENCOUNTER 2021-08-12 14:51 | Emergency (ER) | payer OTHER, SELFPAY ==
[2021-08-12 15:02] VITALS: BP 120/81; PULSE 50; RESP 16; TEMP 37; O2SAT 97; BMI 41.5
--- NOTE | 2021-08-12 15:25 | ECG_ITS ---
[facility] Test Date: 2021-08-12 Pat Name: Ilan Ross Department: Room: Gender: Male Fuel Handler: : [id number] Requested By: Cindy Devine Order Number: [id number] Richi MD: Cisco Bedoya M.D. Measurements Intervals [place] Rate: 48 P: UT: QRS: 70 QRSD: 98 T: 57 QT: 434 QTc: 390 Interpretive Statements ATRIAL FIBRILLATION WITH SLOW VENTRICULAR RESPONSE Early repolarization change ABNORMAL RHYTHM ECG Compared to ECG 06/04/2020 01:44:45 Intraventricular conduction delay no longer present T-wave abnormality no longer present Electronically Signed On 08-12-2021 22:01:39 CDT by Cisco Bedoya M.D. [id number]
--- NOTE | 2021-08-12 15:25 | XRR_ITS ---
PROCEDURE INFORMATION: Exam: XR Chest Exam date and time: 08/12/2021 3:45 PM Age: 51 years old Clinical indication: Other: Weak; Additional info: Fatigue TECHNIQUE: Imaging protocol: XR of the chest. Views: 1 view. COMPARISON: CR XR chest 1V portable [id number] 06/03/2020 7:31 PM FINDINGS: Lungs: Unremarkable. No consolidation. Pleural spaces: Unremarkable. No pleural effusion. No pneumothorax. Heart/Mediastinum: Unremarkable. No cardiomegaly. Bones/joints: Unremarkable. XR/XR chest 1V portable [id number] IMPRESSION: No acute findings.
--- NOTE | 2021-08-12 15:26 | W.ED.GENADLT ---
HPI - General Adult General: Chief complaint: Weakness Stated complaint: low BP Time Seen by Provider: 08/12/21 15:14 History of Present Illness: Patient is a 51-year-old male with history of CAD s/p stent x4, hypertension, atrial fibrillation, hyperlipidemia, CHF who presents the emergency room with generalized weakness, exertional fatigue and throat tightening earlier today. Patient tells me that yesterday night he had left-sided leg pain. Earlier today, patient reports abdominal fullness and upper abdominal pressure like sensation. Patient says that he has been feeling increasingly fatigued throughout the day and when he was lying down to sleep. Patient had 45 minutes of throat tightness. In addition, patient reports significant fatigue with ambulation and exertion throughout the day. Patient currently denies any chest pain, shortness of breath, dyspnea on exertion, chest pain on exertion, pleuritic chest pain, leg swelling, diarrhea, melena hematochezia, fever or chills. Patient denies any sore throat cough runny nose. Onset:earlier today Duration:ongoing Location:home Severity:moderate Associated symptoms: Deny chest pain, dyspnea, nausea, rash, palpitations or vomiting Review of Systems Const: Reports: fatigue; Denies: fever(s) or chills Eyes: Denies: change in vision ENMT: Reports: other (+transient throat tightness); Denies: mouth pain Card: Denies: chest pain or palpitations Resp: Denies: dyspnea or non-productive cough GI: Reports: other (+abdominal fullness); Denies: abdominal pain, nausea, vomiting or diarrhea : Denies: dysuria Musc: Denies: extremity pain Skin/Breast: Denies: rash or new lesions Neuro: Denies: weakness in extremities Psych: Reports: other (Normal mood) Tu/Lymph: Denies: easy bruising PFSH ED PFSH: Medical History Atrial fibrillation CAD (coronary artery disease) CHF (congestive heart failure) COVID-19 Dyslipidemia hypertriglyceridemia and mixed lipidemia HTN (hypertension) Myocardial infarct NSTEMI (non-ST elevated myocardial infarction) Obesity Tobacco abuse Type 2 diabetes mellitus Surgical History History of arthroplasty of left ankle Hx of heart artery stent Family History Father CAD (coronary artery disease) Stroke Diabetes Grandfather CAD (coronary artery disease) Diabetes Brother Diabetes Sister Diabetes Social History Smoking and tobacco status: former smoker Quit status (tobacco): has quit using tobacco Second hand smoke exposure: No Alcohol intake: never Physical Exam Const: COMMON NORMALS: alert HENMT: COMMON NORMALS: atraumatic HEAD & SCALP: atraumatic MOUTH: moist mucous membranes not abnormal OTHER: +intact oropharynx Eye: COMMON NORMALS: EOMs intact bilaterally and conjunctivae normal CONJUNCTIVA: Yes conjunctivae normal Neck/C-Spine: COMMON NORMALS: full ROM and supple Resp: COMMON NORMALS: normal respiratory effort and clear to auscultation bilaterally AUSCULTATION: clear to auscultation bilaterally Cardio: COMMON NORMALS: regular rate RATE: regular rate OTHER: 2+ radial pulses b/l GI: COMMON NORMALS: Soft to palpation and non-tender PALPATION: Yes Soft to palpation OTHER: No focal TTP. NO guarding rebound, guarding, rigidity. No CVA tenderness to percussion. Neg Stuart/Neg McBurney's point tenderness, no suprabupic tenderness to palpation. Extremity: COMMON NORMALS: full ROM NARRATIVE EXTREMITY EXAM: no ed sign b/l Neuro: SENSORIUM/ORIENTATION: Yes alert MOTOR EXAM: No Abnormal motor strength present and Other motor observations present (no focal motor deficits) Psych: COMMON NORMALS: speech normal SPEECH: Yes normal speech MOOD & AFFECT: Yes euthymic mood Course Vital Signs: Vital signs: Vital Signs Temperature 98.6 F 08/12/21 15:02 Pulse Rate 74 08/12/21 20:38 Respiratory Rate 14 08/12/21 20:38 Blood Pressure 140/102 08/12/21 20:38 Pulse Oximetry 96 08/12/21 20:38 MDM - General Adult Medical Decision Making 51M w/ hx of CAD s/p stents x 4, HTN, HLD, DM, afib presenting to the ED for concern of exertional fatigue, generalized weakness, and neck tightness. On physical exam, patient has no signs of oral airway compromise. Lungs appear to be clear bilaterally no focal abdominal tenderness guarding or rebound tenderness. No Homans' sign, minimal edema in lower extremity. Given presentation, it is unclear as to the cause of patient's presentation. Will evaluate for atypical symptoms of ACS. Workup: CBC, CMP, Lipase, UA, troponin x 2, EKG x 2, UA, XR chest, TSH/ free T4 Intervention: ASA/nitro On reassessment, patient had troponin x2 within normal limit. EKG is nonischemic. Patient tells me that she has not had a stress test in the last 2 years. Given presentation of exertional fatigue, throat tightness, upper abdominal pain, this could be anginal equivalent. For admission, however patient was assessed by Dr. Lucas who does not think that this is patient equivalent. I will give patient follow-up with cardiology most arrange for outpatient stress test. I have given patient follow up with our case management coordinator to be seen by our outpatient Cardiology for reassessment and stress test. Patient aware of a call from our case management coordinator to schedule for appointment(s) and verbalizes understanding of the importance of following up. Disposition: Discharge. Patient counseled regarding diagnostic impression, treatment plan. Patient given ED strict return precautions to return for continuation, worsening, or development of new symptoms. Instructed to f/u w/ PCP nad Cardiology regarding symptoms today. Patient verbalized understanding. Lab Data : 08/12/21 16:03 08/12/21 16:03 Radiology Impressions Chest X-Ray 08/12/21 15:25 IMPRESSION: No acute findings. Laboratory Results WBC 10.1 10^3/uL (4.0-10.0) H 08/12/21 16:03 RBC 4.87 10^6/uL (4.1-5.3) 08/12/21 16:03 Hgb 14.5 g/dL (11.7-16.6) 08/12/21 16:03 Hct 42.6 % (42.0-52.0) 08/12/21 16:03 MCV 87.5 fl (80-94) 08/12/21 16:03 MCH 29.8 pg (28.0-34.0) 08/12/21 16:03 MCHC 34.0 g/dL (30.0-36.0) 08/12/21 16:03 RDW 12.2 % (12.1-15.1) 08/12/21 16:03 Plt Count 227 10^3/cmm (130-400) 08/12/21 16:03 MPV 9.8 fL (7.4-10.4) 08/12/21 16:03 Neut % (Auto) 69.7 % 08/12/21 16:03 Lymph % (Auto) 15.8 % 08/12/21 16:03 [place] % (Auto) 10.4 % 08/12/21 16:03 Eos % (Auto) 2.6 % 08/12/21 16:03 Baso % (Auto) 0.9 % 08/12/21 16:03 Neut # (Auto) 7.01 10^3/uL (1.8-7.7) 08/12/21 16:03 Lymph # (Auto) 1.6 10^3/uL (0.8-4.8) 08/12/21 16:03 [place] # (Auto) 1.1 10^3/uL (0.2-0.9) H 08/12/21 16:03 Eos # (Auto) 0.3 10^3/uL (0.0-0.8) 08/12/21 16:03 Baso # (Auto) 0.1 10^3/uL (0.0-0.1) 08/12/21 16:03 Nucleated RBC % (auto) 0 % 08/12/21 16:03 Nucleated RBCs # 0.0 /100WBC 08/12/21 16:03 Sodium 136 mmol/L (136-145) 08/12/21 16:03 Potassium 5.0 mmol/L (3.5-5.1) 08/12/21 16:03 Chloride 100 mmol/L (98-107) 08/12/21 16:03 Carbon Dioxide 24 mmol/L (22-29) 08/12/21 16:03 Anion Gap 17.0 (5-19) 08/12/21 16:03 BUN 20 mg/dL (6-20) 08/12/21 16:03 Creatinine 1.5 mg/dL (0.7-1.2) H 08/12/21 16:03 GFR Calculation 49.3 mL/min (90-130) L 08/12/21 16:03 Glucose 301 mg/dL (65-115) H 08/12/21 16:03 Calculated Osmolality 296 mOsm/kg (285-295) H 08/12/21 16:03 Calcium 9.5 mg/dL (8.5-10.5) 08/12/21 16:03 Total Bilirubin 0.5 mg/dL (0.15-1.2) 08/12/21 16:03 AST 18 U/L (0-40) 08/12/21 16:03 ALT 28 U/L (0-41) 08/12/21 16:03 Alkaline Phosphatase 69 IU/L (40-130) 08/12/21 16:03 Troponin T Baseline 8 ng/L (0-15) 08/12/21 16:03 Troponin T 120 Minute 6.94 ng/L (0-15) 08/12/21 17:28 Delta Troponin T -1.06 ABS# (0-10) L 08/12/21 17:28 NT-Pro-B Natriuret Pep 695 pg/mL (0-125) H 08/12/21 16:03 Total Protein 7.1 g/dL (6.6-8.7) 08/12/21 16:03 Albumin 4.5 g/dL (3.5-5.2) 08/12/21 16:03 Globulin 2.6 g/dL (1.3-4.6) 08/12/21 16:03 Lipase 61 U/L (13-60) H 08/12/21 16:03 TSH 2.77 uIU/mL (0.27-4.20) 08/12/21 16:03 Free T4 0.98 ng/dL (0.82-1.77) 08/12/21 16:03 Imaging Data Other Imaging: Radiologist's impression: [address] [address] XRay Report Signed Patient: Ilan Ross Unit #: [id number] : 1970 Age/Sex: 51 / M ADM Date: 08/12/21 Loc: ER Room/Bed: Attending Dr: Ordering Provider/Ordering MD: Cindy Devine MD Date of Service: 08/12/21 Procedure(s): XR chest 1V portable [id number] Accession Number(s): [id number] Report Number: [id number] PROCEDURE INFORMATION: Exam: XR Chest Exam date and time: 08/12/2021 3:45 PM Age: 51 years old Clinical indication: Other: Weak; Additional info: Fatigue TECHNIQUE: Imaging protocol: XR of the chest. Views: 1 view. COMPARISON: CR XR chest 1V portable [id number] 06/03/2020 7:31 PM FINDINGS: Lungs: Unremarkable. No consolidation. Pleural spaces: Unremarkable. No pleural effusion. No pneumothorax. Heart/Mediastinum: Unremarkable. No cardiomegaly. Bones/joints: Unremarkable. XR/XR chest 1V portable [id number] IMPRESSION: No acute findings. ? Dictated By: Bert Naik DO Signed By: Bert Naik DO Signed Date/Time: 08/12/21 162 DD/ 154 Discharge Plan Discharge Patient Disposition: Home Clinical Impression: Fatigue, Abdominal fullness Condition: Stable Prescriptions: No Action glimepiride [Amaryl] 2 mg tablet 2 mg PO BID 0RF Lasix 20 mg tablet 20 mg PO DAILY PRN (Reason: Edema) Qty: 90 0RF fenofibrate nanocrystallized 145 mg tablet 145 mg PO DAILY Qty: 90 0RF metoprolol tartrate 50 mg tablet 75 mg PO BID@0900,2100 Qty: 270 0RF nitroglycerin 0.4 mg tablet, sublingual 0.4 mg sublingual Q5M PRN (Reason: chest pain) Qty: 25 0RF Rx Instructions: do not exceed 3 doses per episode rivaroxaban 20 mg tablet 20 mg PO DAILY Qty: 90 0RF Rx Instructions: must administer with evening meal at 1999 verapamil 120 mg capsule,ext rel. pellets 24 hr 120 mg PO DAILY Qty: 90 3RF isosorbide mononitrate 30 mg tablet extended release 24 hr 30 mg PO DAILY@1999 Qty: 90 3RF olmesartan 20 mg tablet 20 mg PO DAILY Qty: 90 3RF Rx Instructions: at 0800 clopidogrel 75 mg tablet 75 mg PO BEDTIME Qty: 90 3RF potassium chloride 10 mEq tablet,ER particles/crystals See Rx Instructions .ROUTE .COMPLEX 0RF Rx Instructions: 10 mEq orally Friday through Friday simvastatin 20 mg tablet 20 mg PO DAILY 0RF Rx Instructions: at 1999 Discharge Orders: Discharge ED (Routine); Ordered 08/12/21 Ordered By: Cindy Devine Referrals: Mic Durand MD [Primary Care Provider] - Discharge Diet: Advance as tolerated Discharge Activity: Increase activity as tolerated Activity Restrictions/Additional Instructions: Come back to the emergency room if your chest pain worsens, have any fever or chills, worsening shortness of breath, worsening exertional lightheadedness, or any new or concerning complaints. Stand Alone Forms: Work/School Release Coding Level of Care Code ED Emergency Vehicle Technician for Chg Fwd Exam Comprehensive
[2021-08-12] MEDS: acetaminophen 500 mg Tablet PO (16:06)
[2021-08-12 16:16] LABS: Basophils # 0.1 10^3/uL (0.0-0.1); Basophils % 0.9 %; Eosinophils # 0.3 10^3/uL (0.0-0.8); Eosinophils % 2.6 %; Hematocrit 42.6 % (42.0-52.0); Hemoglobin 14.5 g/dL (11.7-16.6); Lymphocytes # 1.6 10^3/uL (0.8-4.8); Lymphocytes % 15.8 %; Mean Corpuscular Hemoglobin 29.8 pg (28.0-34.0); Mean Corpuscular Volume 87.5 fl (80-94); Mean Platelet Volume 9.8 fL (7.4-10.4); Monocytes # 1.1 10^3/uL (0.2-0.9); Monocytes % 10.4 %; Neutrophils # 7.01 10^3/uL (1.8-7.7); Neutrophils % 69.7 %; Nucleated Red Blood Cells % 0 %; Platelet Count 227 10^3/cmm (130-400); Red Blood Count 4.87 10^6/uL (4.1-5.3); Red Cell Distribution Width 12.2 % (12.1-15.1); White Blood Count 10.1 10^3/uL (4.0-10.0)
[2021-08-12 16:34] LABS: Troponin(5th) Baseline 8 ng/L (0-15)
[2021-08-12 16:44] LABS: Alanine Aminotransferase 28 U/L (0-41); Albumin Level 4.5 g/dL (3.5-5.2); Alkaline Phosphatase 69 IU/L (40-130); Aspartate Amino Transferase 18 U/L (0-40); Blood Urea Nitrogen 20 mg/dL (6-20); Calcium 9.5 mg/dL (8.5-10.5); Carbon Dioxide 24 mmol/L (22-29); Chloride 100 mmol/L (98-107); Free T4 Free Thyroxine 0.98 ng/dL (0.82-1.77); Globulin 2.6 g/dL (1.3-4.6); Glomerular Filtration Rate 49.3 mL/min (90-130); Glucose 301 mg/dL (65-115); Lipase 61 U/L (13-60); NT Pro B Type Natriuretic Pept 695 pg/mL (0-125); Osmolality Calculated 296 mOsm/kg (285-295); Sodium 136 mmol/L (136-145); Thyroid Stimulating Hormone 2.77 uIU/mL (0.27-4.20); Total Bilirubin 0.5 mg/dL (0.15-1.2); Total Protein 7.1 g/dL (6.6-8.7)
[2021-08-12 18:06] LABS: Troponin 5 2HR 6.94 ng/L (0-15)
[2021-08-12 18:38] LABS: Troponin 5 2HR Delta -1.06 ABS# (0-10)
[2021-08-12 18:49] VITALS: BP 144/74; PULSE 67; RESP 17; O2SAT 97
[2021-08-12 19:56] VITALS: BP 140/102; PULSE 88; RESP 13; O2SAT 98
[2021-08-12] MEDS: aspirin 325 mg Tablet PO (19:56)
--- NOTE | 2021-08-12 20:20 | PM.HP ---
Providers/Chief Complaint Primary Care Provider: Mic Durand MD Chief Complaint: low BP History of Present Illness The patient is a 51-year-old male who presents with chief complaint of fatigue and slow heart rate. He states his symptoms started on the morning of August 12, 2021. He admits to onset of nausea as well as lightheadedness only when standing from a seated position in rastafari. He denies fever, rigors, vomiting, cough, wheeze, diarrhea, myalgia, chest pain, dyspnea, dizziness, diaphoresis, palpitations, sense of rapid heartbeat, sensation knee regular heartbeat. He denies any new peripheral edema. Upon further questioning he admits to left-sided abdominal pain. Patient has known history of coronary artery disease, status post DE, status post stent, status post coronary angioplasty. Patient had cardiac catheterization on 2020 which was unremarkable. He presents for further evaluation Review of Systems General: Reports: 10 or more systems reviewed and unremarkable except in HPI and below Medications/Allergies Home Medications Medication Instructions Recorded Confirmed Last Taken Type fenofibrate nanocrystallized 145 145 mg PO DAILY #90 tab 01/17/21 08/12/21 08/05/21 Rx mg tablet furosemide 20 mg tablet (Lasix) 20 mg PO DAILY PRN #90 tab 01/17/21 08/12/21 Unknown Rx metoprolol tartrate 50 mg tablet 75 mg PO BID@0900,2100 #270 tab 01/17/21 08/12/21 08/12/21 Rx nitroglycerin 0.4 mg sublingual 0.4 mg SUBLINGUAL Q5M PRN #25 tab 01/17/21 08/12/21 Unknown Rx tablet rivaroxaban 20 mg tablet 20 mg PO DAILY #90 tab 01/17/21 08/12/21 08/11/21 Rx glimepiride 2 mg tablet (Amaryl) 2 mg PO BID tab 03/05/21 08/12/21 08/12/21 History isosorbide mononitrate 30 mg 30 mg PO DAILY@1999 #90 tab 05/07/21 08/12/21 08/11/21 Rx tablet,extended release 24 hr verapamil 120 mg 24 hr 120 mg PO DAILY #90 cap 05/07/21 08/12/21 08/12/21 Rx capsule,extended release olmesartan 20 mg tablet 20 mg PO DAILY #90 tab 05/14/21 08/12/21 08/12/21 Rx clopidogrel 75 mg tablet 75 mg PO BEDTIME #90 tab 07/02/21 08/12/21 08/11/21 Rx potassium chloride 10 mEq See Rx Instructions .ROUTE .COMPLEX 08/12/21 08/12/21 08/09/21 History tablet,extended release(part/cryst) simvastatin 20 mg tablet 20 mg PO DAILY 08/12/21 08/12/21 08/11/21 History Allergies Allergy/AdvReac Type Severity Reaction Status Date / Time atorvastatin [From Lipitor] Allergy Unknown Unknown Verified 08/12/21 17:02 ticagrelor [From Brilinta] Allergy Unknown Unknown Verified 08/12/21 17:02 apixaban [From Eliquis] Allergy rash, Verified 07/28/20 09:06 throat swelling lisinopril Allergy joint pain Verified 07/28/20 09:06 PFSH Acute PFSH: Medical History Atrial fibrillation CAD (coronary artery disease) CHF (congestive heart failure) COVID-19 Dyslipidemia hypertriglyceridemia and mixed lipidemia HTN (hypertension) Myocardial infarct NSTEMI (non-ST elevated myocardial infarction) Obesity Tobacco abuse Type 2 diabetes mellitus Surgical History History of arthroplasty of left ankle Hx of heart artery stent Family History Father CAD (coronary artery disease) Stroke Diabetes Grandfather CAD (coronary artery disease) Diabetes Brother Diabetes Sister Diabetes Social History Smoking and tobacco status: former smoker Quit status (tobacco): has quit using tobacco Second hand smoke exposure: No Alcohol intake: never Vitals/I&O/Wt Last Vital Signs Temp 98.6 F 08/12/21 15:02 Pulse 88 08/12/21 19:56 Resp 13 08/12/21 19:56 BP 140/102 08/12/21 19:56 Pulse Ox 98 08/12/21 19:56 Weight last 48 hrs Weight 158.757 kg Physical Exam Narrative: General: -Alert -No acute distress -No dyspnea -No tachypnea Head: -Atraumatic -Normocephalic Eyes: -Pupils equally round and reactive to light and accommodation -Extraocular muscles intact Neurological: -Cranial nerves II-XII intact Neck: -No jugular venous distention -No thyromegaly -No cervical lymphadenopathy Heart: -Regular rate -Regular rhythm -No murmurs -No gallops -No rubs Lungs: -No wheeze -No rhonchi -No rales ? Abdomen: -Normal bowel sounds in all four quadrants -No rebound -No guarding -No tenderness Extremities: -2/4 pulse in all four extremities -No clubbing -No cyanosis -No edema -No calf tenderness present bilaterally -Negative Adalgisa?s sign bilaterally Musculoskeletal: -5/5 bilateral upper extremity strength -5/5 bilateral lower extremity strength -Sensorium of bilateral upper extremities are equal and intact -Sensorium of bilateral lower extremities are equal and intact ? Additional Details / Additional Findings / Exceptions / Miscellaneous: Data : 08/12/21 16:03 08/12/21 16:03 A&P Assessment and plan (1) Fatigue: Status: Acute Plan Dizziness secondary to bradycardia and dehydration. I spoken with the emergency medicine physician as well as the patient and his spouse regarding increased oral fluid intake and regarding continuing his verapamil and tingling one half tablet of his metoprolol. I have advised him to follow-up with his primary care physician and/or fountain roller assembler for further medication titration. I recommended to the emergency medicine physician of possible fluid bolus per prior to discharge Atrial for ablation CHF, ejection fraction 50-55% per echocardiogram from [facility] 2020 Coronary artery disease, status post DE, status post stent, status post coronary angioplasty Diabetes Hyperlipidemia Hypertension Obesity. The patient becomes regarding lifestyle modification The patient will be discharged from the emergency department by the emergency medicine physician Attestations Medical Necessity Statement*: I spoken with the patient and his spouse and he will be discharged from the emergency department by the emergency medicine physician and both he and his spouse are agreeable and have been advised to return to the hospital should he develop any change/new symptoms Coding Level of Care Code Acute Car Installations Supervisor for Dianeg Fwd Diagnoses Fatigue R53.83
[2021-08-12 20:38] VITALS: BP 140/102; PULSE 74; RESP 14; O2SAT 96
--- NOTE | 2021-08-13 11:34 | DCPLANNER ---
Addendum entered by Gisselle Leung 09/29/21 08:53: geochemical manager was told that patient no longer wants the stress test. Addendum entered by Gisselle Leung 08/28/21 21:30: Patient had a follow up appointment scheduled for 08.15.21 with [facility] - patient did attend appointment. Addendum entered by Gisselle Leung 08/14/21 13:19: Patient has a follow up appointment scheduled for Sunday, August 15, 2021 at 1:30 with PANEL WIRER, Rica Samson at [facility]. geochemical manager called patient and gave him the appointment information. geochemical manager also informed patient that an order for a stress test was ordered for patient and that centralized scheduling will call patient with appointment information. Original Note: geochemical manager had message to schedule a follow up appointment for patient with [facility]. geochemical manager sent patients information to the front staff at [facility] for review. Patients information will be printed and reviewed. [facility] will notify case management social worker of the scheduled appointment, case management social worker will call patient with appointment information. geochemical manager also had message to schedule an outpatient stress test for patient. geochemical manager faxed signed order to centralized scheduling, who will call patient with appointment information.
== END 2021-08-12 20:40 | disposition home or self-care (01) ==
PROVIDERS: Emergency Provider Emergency Medicine; PCP Family Medicine
DX: R53.83 Other fatigue (principal); R53.1 Weakness; I10 Essential (primary) hypertension; E11.9 Type 2 diabetes mellitus without complications; I48.91 Unspecified atrial fibrillation; I25.10 Atherosclerotic heart disease of native coronary artery without angina pectoris; I25.2 Old myocardial infarction; E66.9 Obesity, unspecified; Z68.41 Body mass index [BMI] 40.0-44.9, adult; Z87.891 Personal history of nicotine dependence; Z79.84 Long term (current) use of oral hypoglycemic drugs
CPT/HCPCS: 71045; 80053; 83690; 83880; 84439; 84443; 84484; 85025; 93005; 99283

== ENCOUNTER → 2021-10-22 16:35 | Outpatient (BNVA) | payer OTHER, SELFPAY | PROVIDERS: PCP Family Medicine; Visit Provider Family Medicine | DX: I25.10 Atherosclerotic heart disease of native coronary artery without angina pectoris (principal); E78.5 Hyperlipidemia, unspecified | CPT/HCPCS: 80053; 80061; 83036; 85025 ==

== ENCOUNTER → 2022-03-20 10:52 | Outpatient (BNVA) | payer OTHER, SELFPAY | PROVIDERS: PCP Family Medicine; Visit Provider Family Medicine | DX: E11.9 Type 2 diabetes mellitus without complications (principal); I50.9 Heart failure, unspecified; I25.10 Atherosclerotic heart disease of native coronary artery without angina pectoris; I48.91 Unspecified atrial fibrillation; R55 Syncope and collapse; J02.0 Streptococcal pharyngitis; I10 Essential (primary) hypertension | CPT/HCPCS: 80053; 80061; 83036; 83880; 84443; 85025; 86140 ==

== ENCOUNTER 2022-03-28 10:04 | Emergency (ER) | payer OTHER, SELFPAY ==
[2022-03-28 10:15] VITALS: BP 136/95; PULSE 123; RESP 18; O2SAT 95; BMI 40.8
--- NOTE | 2022-03-28 10:17 | ECG_ITS ---
[facility] Test Date: 2022-03-28 Pat Name: Ilan Ross Department: Room: Gender: Male Histology Teacher: : 1970 Requested By: True Martin Order Number: [id number] Richi MD: Cisco Bedoya M.D. Measurements Intervals [place] Rate: 114 P: 0 MI: 0 QRS: 31 QRSD: 91 T: 68 QT: 323 QTc: 447 Interpretive Statements ATRIAL FIBRILLATION WITH RAPID VENTRICULAR RESPONSE ABNORMAL RHYTHM ECG Compared to ECG 08/12/2021 15:35:22 Early repolarization no longer present Electronically Signed On 03-28-2022 12:43:06 [employer]PERATIONS [employer] by Cisco Bedoya M.D. [email or web address] Internationalmer[employer] health [email or web address] Onemain campus medical centerSkiin Fundementals/store/[id number]
[2022-03-28 10:18] VITALS: BP 136/95; PULSE 95; RESP 15; O2SAT 93
--- NOTE | 2022-03-28 10:49 | XRR_ITS ---
PROCEDURE INFORMATION: Exam: XR Chest Exam date and time: 03/28/2022 11:56 AM Age: 51 years old Clinical indication: Cough and shortness of breath; Additional info: SOB TECHNIQUE: Imaging protocol: Radiologic exam of the chest. Views: 1 view. COMPARISON: CR XR chest 1V portable [id number] 08/12/2021 3:45 PM FINDINGS: Lungs: Low lung volumes seen. No consolidation. Pleural spaces: Unremarkable. No pleural effusion. No pneumothorax. Heart/Mediastinum: Unremarkable. No cardiomegaly. Bones/joints: Unremarkable. Comparison to prior examination similar findings seen XR/XR chest 1V portable [id number] IMPRESSION: No acute findings.
--- NOTE | 2022-03-28 10:52 | ED_ITS ---
Documented by User: True Martin 03/28/22 11:03 HPI - SOB/Dyspnea General: Chief Complaint: Shortness of Breath/Dyspnea Stated Complaint: Chest Pain, SOB Time Seen by Provider: 03/28/22 10:29 History of Present Illness: HPI Narrative: 51-year-old male presents emerged department chief complaint progressive shortness of breath difficulty breathing fever cough congestion myalgias arthralgias been ongoing for last 3 days patient believes he may have the flu. He does report a significant history of cardiac history he reports mild chest pressure with no pain reports no palpitations. Associated symptoms: Reports fever(s); Deny abdominal pain, chest pain, extremity pain, nausea, palpitations or vomiting Review of Systems General: Reports: 10 or more systems reviewed and unremarkable except in HPI and below Const: Reports: fever(s), chills, body aches and change in appetite Eyes: Denies: change in vision or blurry vision Card: Denies: chest pain or palpitations Resp: Reports: dyspnea and non-productive cough GI: Denies: abdominal pain, nausea or vomiting : Denies: flank pain Musc: Denies: extremity pain or extremity swelling Skin/Breast: Denies: rash or pruritus Neuro: Denies: headache(s) Psych: Denies: anxiety or depression Tu/Lymph: Denies: easy bleeding All/Imm: Denies: urticaria, throat swelling or facial swelling PFSH ED PFSH: Medical History Atrial fibrillation CAD (coronary artery disease) CHF (congestive heart failure) COVID-19 Dyslipidemia hypertriglyceridemia and mixed lipidemia HTN (hypertension) Myocardial infarct NSTEMI (non-ST elevated myocardial infarction) Obesity Tobacco abuse Type 2 diabetes mellitus Surgical History History of arthroplasty of left ankle Hx of heart artery stent Family History Father CAD (coronary artery disease) Stroke Diabetes Grandfather CAD (coronary artery disease) Diabetes Brother Diabetes Sister Diabetes Social History Smoking and tobacco status: former smoker Quit status (tobacco): has quit using tobacco Second hand smoke exposure: No Alcohol intake: never Physical Exam HENMT: COMMON NORMALS: normocephalic and atraumatic HEAD & SCALP: normocephalic and atraumatic Eye: COMMON NORMALS: Equal, round and reactive pupils present and EOMs intact bilaterally PUPIL: Yes Equal, round and reactive pupils present Neck/C-Spine: COMMON NORMALS: full ROM, supple and no JVD Lymph: LYMPHATIC: no lymphadenopathy noted Chest: COMMONS NORMALS: normal inspection of the chest and normal palpation of entire chest wall Resp: OTHER: Ms. breath sounds appreciated bilaterally mild expiratory wheeze appreciated. Cardio: COMMON NORMALS: no JVD, regular rate and regular rhythm RATE: regular rate RHYTHM: regular rhythm GI: COMMON NORMALS: Normal to inspection, nondistended, normoactive bowel sounds present, Soft to palpation and non-tender INSPECTION: Yes normal to inspection PALPATION: Yes Soft to palpation : COMMON NORMALS: Yes no CVA tenderness BLADDER/KIDNEY EXAM: Yes no CVA tenderness Back/Pelvis: COMMON NORMALS: no CVA tenderness Extremity: COMMON NORMALS: normal to inspection and full ROM Neuro: COMMON NORMALS: CN's II-XII intact bilaterally, moves all extremities and no focal motor deficits Psych: COMMON NORMALS: mental status grossly normal, Normal thought process present, cooperative and normal affect THOUGHT PROCESS: Normal thought process present Skin: COMMON NORMALS: no rashes or lesions noted GENERAL SKIN EXAM: no rashes or lesions noted Course Vital Signs: Vital signs: Vital Signs Pulse Rate 97 03/28/22 12:18 Respiratory Rate 16 03/28/22 12:18 Blood Pressure 123/81 03/28/22 12:18 Pulse Oximetry 95 03/28/22 12:18 Oxygen Delivery Me thod 03/28/22 12:18 MDM - SOB/Dyspnea Medical Decision Making Due to the patient's symptom condition IV established labwork imaging obtained IV fluids provided for hydration Tessalon Perles steroids nebs given flu swabs will be obtained we will continue to follow this patient was signed to my colleague Dr. Gutierrez at 11:00 Lab Data 03/28/22 10:25 03/28/22 10:25 Labs/Radiology: Radiology Impressions Chest X-Ray 03/28/22 10:49 IMPRESSION: No acute findings. Laboratory Results WBC 10.3 10^3/uL (4.0-10.0) H 03/28/22 10:25 RBC 5.14 10^6/uL (4.1-5.3) 03/28/22 10:25 Hgb 15.1 g/dL (11.7-16.6) 03/28/22 10:25 Hct 44.2 % (42.0-52.0) 03/28/22 10:25 MCV 86.0 fl (80-94) 03/28/22 10:25 MCH 29.4 pg (28.0-34.0) 03/28/22 10:25 MCHC 34.2 g/dL (30.0-36.0) 03/28/22 10:25 RDW 11.8 % (12.1-15.1) L 03/28/22 10:25 Plt Count 184 10^3/cmm (130-400) 03/28/22 10:25 MPV 10.2 fL (7.4-10.4) 03/28/22 10:25 Neut % (Auto) 81.5 % 03/28/22 10:25 Lymph % (Auto) 7.7 % 03/28/22 10:25 [place] % (Auto) 9.3 % 03/28/22 10:25 Eos % (Auto) 0.8 % 03/28/22 10:25 Baso % (Auto) 0.4 % 03/28/22 10:25 Neut # (Auto) 8.41 10^3/uL (1.8-7.7) H 03/28/22 10:25 Lymph # (Auto) 0.8 10^3/uL (0.8-4.8) 03/28/22 10:25 [place] # (Auto) 1.0 10^3/uL (0.2-0.9) H 03/28/22 10:25 Eos # (Auto) 0.1 10^3/uL (0.0-0.8) 03/28/22 10:25 Baso # (Auto) 0.0 10^3/uL (0.0-0.1) 03/28/22 10:25 Nucleated RBC % (auto) 0 % 03/28/22 10:25 Nucleated RBCs # 0.0 /100WBC 03/28/22 10:25 Sodium 132 mmol/L (136-145) L 03/28/22 10:25 Potassium 4.5 mmol/L (3.5-5.1) 03/28/22 10:25 Chloride 95 mmol/L (98-107) L 03/28/22 10:25 Carbon Dioxide 23 mmol/L (22-29) 03/28/22 10:25 Anion Gap 18.5 (5-19) 03/28/22 10:25 BUN 15 mg/dL (6-20) 03/28/22 10:25 Creatinine 0.8 mg/dL (0.7-1.2) 03/28/22 10:25 GFR Calculation 101.9 mL/min (90-130) 03/28/22 10:25 Glucose 244 mg/dL (65-115) H 03/28/22 10:25 Calculated Osmolality 283 mOsm/kg (285-295) L 03/28/22 10:25 Calcium 9.3 mg/dL (8.5-10.5) 03/28/22 10:25 Total Bilirubin 0.6 mg/dL (0.15-1.2) 03/28/22 10:25 AST 18 U/L (0-40) 03/28/22 10:25 ALT 27 U/L (0-41) 03/28/22 10:25 Alkaline Phosphatase 62 U/L (40-130) 03/28/22 10:25 Troponin T Baseline 6 ng/L (0-15) 03/28/22 10:25 Troponin T 120 Minute 6.00 ng/L (0-15) 03/28/22 12:44 NT-Pro-B Natriuret Pep 495 pg/mL (0-125) H 03/28/22 10:25 Total Protein 7.5 g/dL (6.6-8.7) 03/28/22 10:25 Albumin 4.0 g/dL (3.5-5.2) 03/28/22 10:25 Globulin 3.5 g/dL (1.3-4.6) 03/28/22 10:25 Influenza Type A Ag positive (Negative) 03/28/22 11:00 Influenza Type B Ag negative (Negative) 03/28/22 11:00 SARS-CoV-2 Ag (Rapid) negative (Negative) 03/28/22 11:00 Discharge Plan Discharge Patient Disposition: Home Clinical Impression: Influenza A Condition: Stable Prescriptions: No Action amoxicillin 500 mg capsule 500 mg PO TID Qty: 30 0RF Rx Instructions: RX FILLED 03/20/22 10D/S Januvia 50 mg tablet 50 mg PO BEDTIME nitroglycerin 0.4 mg tablet, sublingual 0.4 mg sublingual Q5M PRN (Reason: chest pain) Qty: 25 0RF Rx Instructions: do not exceed 3 doses per episode clopidogrel 75 mg tablet 75 mg PO BEDTIME Qty: 90 3RF metoprolol tartrate 50 mg tablet 50 mg PO BID Qty: 180 3RF isosorbide mononitrate 30 mg tablet extended release 24 hr 30 mg PO BID Qty: 120 3RF simvastatin 20 mg tablet 20 mg PO BEDTIME verapamil 120 mg tablet extended release 120 mg PO QAM Tylenol Ex Str Rapid Release 500 mg Tablet 1,000 mg PO Q6H PRN (Reason: Pain) glimepiride 4 mg tablet 4 mg PO BID ProAir HFA 90 mcg/actuation Hfa Aerosol Inhaler 2 puff INHALATION QID PRN (Reason: Shortness Of Breath) Claritin 10 mg Tablet 10 mg PO DAILY PRN (Reason: Allergy Symptoms) Vitamin D3 50 mcg (2,000 unit) Tablet 2,000 unit PO DAILY PRN (Reason: UNKNOWN) furosemide [Lasix] 20 mg tablet 20 mg PO .MON THROUGH FRI Rx Instructions: ONCE A DAY MON THROUGH FRI olmesartan 20 mg tablet 20 mg PO QAM potassium chloride 10 mEq tablet,ER particles/crystals 10 meq PO .FRI THROUGH FRIDAY Rx Instructions: ONCE A DAY MON THROUGH FRI fenofibrate nanocrystallized 145 mg tablet 145 mg PO QAM Xarelto 20 mg tablet 20 mg PO QPM Discharge Orders: Discharge ED (Routine); Ordered 03/28/22 Ordered By: Karthik Gutierrez Referrals: Mic Durand MD [Primary Care Provider] - Discharge Diet: Usual diet Discharge Activity: Resume usual activity Patient Instructions: Opioid Safety, Pain Management Activity Restrictions/Additional Instructions: You are seen today for cough and shortness of breath. Your chest x-ray EKG and laboratory studies were unremarkable with the exception of you did test positive for flu. You are outside the window of opportunity for treatment with influenza antiviral suggest supportive care for the remainder of the course of your symptoms. Tylenol and ibuprofen [id number] cough cold remedies as needed. Coding Level of Care Code ED Case Folder for Chg Fwd Exam Comprehensive Documented by User: Karthik Gutierrez DO 03/28/22 13:35 HPI - SOB/Dyspnea General: Chief Complaint: Shortness of Breath/Dyspnea Stated Complaint: Chest Pain, SOB Time Seen by Provider: 03/28/22 10:29 PFSH ED PFSH: Medical History Atrial fibrillation CAD (coronary artery disease) CHF (congestive heart failure) COVID-19 Dyslipidemia hypertriglyceridemia and mixed lipidemia HTN (hypertension) Myocardial infarct NSTEMI (non-ST elevated myocardial infarction) Obesity Tobacco abuse Type 2 diabetes mellitus Surgical History History of arthroplasty of left ankle Hx of heart artery stent Family History Father CAD (coronary artery disease) Stroke Diabetes Grandfather CAD (coronary artery disease) Diabetes Brother Diabetes Sister Diabetes Social History Smoking and tobacco status: former smoker Quit status (tobacco): has quit using tobacco Second hand smoke exposure: No Alcohol intake: never Course Vital Signs: Vital signs: Vital Signs Pulse Rate 97 03/28/22 12:18 Respiratory Rate 16 03/28/22 12:18 Blood Pressure 123/81 03/28/22 12:18 Pulse Oximetry 95 03/28/22 12:18 Oxygen Delivery Me thod 03/28/22 12:18 MDM - SOB/Dyspnea Medical Decision Making Due to the patient's symptom condition IV established labwork imaging obtained IV fluids provided for hydration Tessalon Perles steroids nebs given flu swabs will be obtained we will continue to follow this patient was signed to my colleague Dr. Gutierrez at 11:00 Care assumed at change of shift. Patient has been doing well no further symptoms. His tested positive for flu a he is flu a positive as well. Chest x-ray is negative we will discharge patient home he is beyond the scope of antivirals. Medical Records I reviewed the patient's medical records. Lab Data I reviewed the patient's lab results. 03/28/22 10:25 03/28/22 10:25 Labs/Radiology: Radiology Impressions Chest X-Ray 03/28/22 10:49 IMPRESSION: No acute findings. Laboratory Results WBC 10.3 10^3/uL (4.0-10.0) H 03/28/22 10:25 RBC 5.14 10^6/uL (4.1-5.3) 03/28/22 10:25 Hgb 15.1 g/dL (11.7-16.6) 03/28/22 10:25 Hct 44.2 % (42.0-52.0) 03/28/22 10:25 MCV 86.0 fl (80-94) 03/28/22 10:25 MCH 29.4 pg (28.0-34.0) 03/28/22 10:25 MCHC 34.2 g/dL (30.0-36.0) 03/28/22 10:25 RDW 11.8 % (12.1-15.1) L 03/28/22 10:25 Plt Count 184 10^3/cmm (130-400) 03/28/22 10:25 MPV 10.2 fL (7.4-10.4) 03/28/22 10:25 Neut % (Auto) 81.5 % 03/28/22 10:25 Lymph % (Auto) 7.7 % 03/28/22 10:25 [place] % (Auto) 9.3 % 03/28/22 10:25 Eos % (Auto) 0.8 % 03/28/22 10:25 Baso % (Auto) 0.4 % 03/28/22 10:25 Neut # (Auto) 8.41 10^3/uL (1.8-7.7) H 03/28/22 10:25 Lymph # (Auto) 0.8 10^3/uL (0.8-4.8) 03/28/22 10:25 [place] # (Auto) 1.0 10^3/uL (0.2-0.9) H 03/28/22 10:25 Eos # (Auto) 0.1 10^3/uL (0.0-0.8) 03/28/22 10:25 Baso # (Auto) 0.0 10^3/uL (0.0-0.1) 03/28/22 10:25 Nucleated RBC % (auto) 0 % 03/28/22 10:25 Nucleated RBCs # 0.0 /100WBC 03/28/22 10:25 Sodium 132 mmol/L (136-145) L 03/28/22 10:25 Potassium 4.5 mmol/L (3.5-5.1) 03/28/22 10:25 Chloride 95 mmol/L (98-107) L 03/28/22 10:25 Carbon Dioxide 23 mmol/L (22-29) 03/28/22 10:25 Anion Gap 18.5 (5-19) 03/28/22 10:25 BUN 15 mg/dL (6-20) 03/28/22 10:25 Creatinine 0.8 mg/dL (0.7-1.2) 03/28/22 10:25 GFR Calculation 101.9 mL/min (90-130) 03/28/22 10:25 Glucose 244 mg/dL (65-115) H 03/28/22 10:25 Calculated Osmolality 283 mOsm/kg (285-295) L 03/28/22 10:25 Calcium 9.3 mg/dL (8.5-10.5) 03/28/22 10:25 Total Bilirubin 0.6 mg/dL (0.15-1.2) 03/28/22 10:25 AST 18 U/L (0-40) 03/28/22 10:25 ALT 27 U/L (0-41) 03/28/22 10:25 Alkaline Phosphatase 62 U/L (40-130) 03/28/22 10:25 Troponin T Baseline 6 ng/L (0-15) 03/28/22 10:25 Troponin T 120 Minute 6.00 ng/L (0-15) 03/28/22 12:44 NT-Pro-B Natriuret Pep 495 pg/mL (0-125) H 03/28/22 10:25 Total Protein 7.5 g/dL (6.6-8.7) 03/28/22 10:25 Albumin 4.0 g/dL (3.5-5.2) 03/28/22 10:25 Globulin 3.5 g/dL (1.3-4.6) 03/28/22 10:25 Influenza Type A Ag positive (Negative) 03/28/22 11:00 Influenza Type B Ag negative (Negative) 03/28/22 11:00 SARS-CoV-2 Ag (Rapid) negative (Negative) 03/28/22 11:00 Discharge Plan Discharge Patient Disposition: Home Clinical Impression: Influenza A Condition: Stable Prescriptions: No Action amoxicillin 500 mg capsule 500 mg PO TID Qty: 30 0RF Rx Instructions: RX FILLED 03/20/22 10D/S Januvia 50 mg tablet 50 mg PO BEDTIME nitroglycerin 0.4 mg tablet, sublingual 0.4 mg sublingual Q5M PRN (Reason: chest pain) Qty: 25 0RF Rx Instructions: do not exceed 3 doses per episode clopidogrel 75 mg tablet 75 mg PO BEDTIME Qty: 90 3RF metoprolol tartrate 50 mg tablet 50 mg PO BID Qty: 180 3RF isosorbide mononitrate 30 mg tablet extended release 24 hr 30 mg PO BID Qty: 120 3RF simvastatin 20 mg tablet 20 mg PO BEDTIME verapamil 120 mg tablet extended release 120 mg PO QAM Tylenol Ex Str Rapid Release 500 mg Tablet 1,000 mg PO Q6H PRN (Reason: Pain) glimepiride 4 mg tablet 4 mg PO BID ProAir HFA 90 mcg/actuation Hfa Aerosol Inhaler 2 puff INHALATION QID PRN (Reason: Shortness Of Breath) Claritin 10 mg Tablet 10 mg PO DAILY PRN (Reason: Allergy Symptoms) Vitamin D3 50 mcg (2,000 unit) Tablet 2,000 unit PO DAILY PRN (Reason: UNKNOWN) furosemide [Lasix] 20 mg tablet 20 mg PO .MON THROUGH FRI Rx Instructions: ONCE A DAY FRI THROUGH FRI olmesartan 20 mg tablet 20 mg PO QAM potassium chloride 10 mEq tablet,ER particles/crystals 10 meq PO .FRI THROUGH FRIDAY Rx Instructions: ONCE A DAY MON THROUGH FRI fenofibrate nanocrystallized 145 mg tablet 145 mg PO QAM Xarelto 20 mg tablet 20 mg PO QPM Discharge Orders: Discharge ED (Routine); Ordered 03/28/22 Ordered By: Karthik Gutierrez Referrals: Mic Durand MD [Primary Care Provider] - Discharge Diet: Usual diet Discharge Activity: Resume usual activity Patient Instructions: Opioid Safety, Pain Management Activity Restrictions/Additional Instructions: You are seen today for cough and shortness of breath. Your chest x-ray EKG and laboratory studies were unremarkable with the exception of you did test positive for flu. You are outside the window of opportunity for treatment with influenza antiviral suggest supportive care for the remainder of the course of your symptoms. Tylenol and ibuprofen [id number] cough cold remedies as needed. Coding Level of Care Code ED Case Folder for Chg Fwd Exam Comprehensive
[2022-03-28] MEDS: sodium chloride 0.9% 1,000 ML 999 ML IV (11:06)
[2022-03-28] MEDS: benzonatate 100 mg Capsule 200 MG PO (11:06)
[2022-03-28 11:10] LABS: Basophils % 0.4 %; Eosinophils # 0.1 10^3/uL (0.0-0.8); Eosinophils % 0.8 %; Hematocrit 44.2 % (42.0-52.0); Hemoglobin 15.1 g/dL (11.7-16.6); Lymphocytes # 0.8 10^3/uL (0.8-4.8); Lymphocytes % 7.7 %; Mean Corpuscular HGB Conc 34.2 g/dL (30.0-36.0); Mean Corpuscular Hemoglobin 29.4 pg (28.0-34.0); Mean Platelet Volume 10.2 fL (7.4-10.4); Monocytes % 9.3 %; Neutrophils # 8.41 10^3/uL (1.8-7.7); Neutrophils % 81.5 %; Nucleated Red Blood Cells % 0 %; Platelet Count 184 10^3/cmm (130-400); Red Blood Count 5.14 10^6/uL (4.1-5.3); Red Cell Distribution Width 11.8 % (12.1-15.1); White Blood Count 10.3 10^3/uL (4.0-10.0)
[2022-03-28 11:18] VITALS: BP 126/85; PULSE 95; RESP 15; O2SAT 95
[2022-03-28 11:23] LABS: Influenza A by IFA positive (Negative); Influenza B by IFA negative (Negative)
[2022-03-28 11:31] LABS: SARS Covid-2 Antigen negative (Negative)
[2022-03-28 11:31] LABS: Troponin(5th) Baseline 6 ng/L (0-15)
[2022-03-28 11:40] LABS: Alanine Aminotransferase 27 U/L (0-41); Alkaline Phosphatase 62 U/L (40-130); Anion Gap 18.5 (5-19); Aspartate Amino Transferase 18 U/L (0-40); Blood Urea Nitrogen 15 mg/dL (6-20); Calcium 9.3 mg/dL (8.5-10.5); Carbon Dioxide 23 mmol/L (22-29); Chloride 95 mmol/L (98-107); Globulin 3.5 g/dL (1.3-4.6); Glomerular Filtration Rate 101.9 mL/min (90-130); Glucose 244 mg/dL (65-115); NT Pro B Type Natriuretic Pept 495 pg/mL (0-125); Osmolality Calculated 283 mOsm/kg (285-295); Potassium 4.5 mmol/L (3.5-5.1); Sodium 132 mmol/L (136-145); Total Bilirubin 0.6 mg/dL (0.15-1.2); Total Protein 7.5 g/dL (6.6-8.7)
[2022-03-28 12:18] VITALS: BP 123/81; PULSE 97; RESP 16; O2SAT 95
[2022-03-28 13:37] LABS: Troponin 5 2HR Delta 0 ABS# (0-10)
== END 2022-03-28 12:55 | disposition home or self-care (01) ==
PROVIDERS: Emergency Medicine; Emergency Provider Family Medicine; PCP Family Medicine
DX: J10.1 Influenza due to other identified influenza virus with other respiratory manifestations (principal); Z79.84 Long term (current) use of oral hypoglycemic drugs; Z79.02 Long term (current) use of antithrombotics/antiplatelets; Z20.822 Contact with and (suspected) exposure to COVID-19; Z87.891 Personal history of nicotine dependence; I25.10 Atherosclerotic heart disease of native coronary artery without angina pectoris; I11.0 Hypertensive heart disease with heart failure; I50.9 Heart failure, unspecified; E78.5 Hyperlipidemia, unspecified; I25.2 Old myocardial infarction; E11.9 Type 2 diabetes mellitus without complications
CPT/HCPCS: 71045; 80053; 83880; 84484; 85025; 87426; 87804; 93005; 96361; 96374; 99285; J2930; J7030

== ENCOUNTER 2022-05-22 13:15 | Outpatient (CLI) | payer OTHER, SELFPAY ==
--- NOTE | 2022-05-22 13:54 | XRR_ITS ---
PROCEDURE INFORMATION: Exam: XR Chest Exam date and time: 05/22/2022 1:55 PM Age: 52 years old Clinical indication: Cough and shortness of breath; Prior surgery; Surgery type: Stents TECHNIQUE: Imaging protocol: Radiologic exam of the chest. Views: 2 views. COMPARISON: CR XR chest 1V portable [id number] 03/28/2022 11:56 AM FINDINGS: Lungs: Unremarkable. No consolidation. Pleural spaces: Unremarkable. No pleural effusion. No pneumothorax. Heart/Mediastinum: Unremarkable. No cardiomegaly. Bones/joints: Unremarkable. there has been no interval change comparing to prior examination XR/XR chest 2V* [id number] IMPRESSION: No acute findings.
== END 2022-05-22 13:16 | disposition home or self-care (01) ==
LOC: RAD 13:18
PROVIDERS: PCP Family Medicine; Visit Provider Family Medicine
DX: I48.0 Paroxysmal atrial fibrillation (principal); I50.32 Chronic diastolic (congestive) heart failure; R06.00 Dyspnea, unspecified; R53.1 Weakness
CPT/HCPCS: 71046; 80053; 83880; 85025

== ENCOUNTER 2022-06-04 14:15 | Outpatient (CLI) | payer OTHER, SELFPAY ==
--- NOTE | 2022-06-04 15:15 | USCV_ITS ---
Cody Ilan Age: 52 Gender: M : 1970 Exam Date: 06/04/2022 14:48 Ordering Phys: Mic Durand MD Technologist: LIYA Exam Location: [facility] [place] Indication: DYSPNEA, HX OF CHF BP: 123 / 81 HR: 103 Rhythm: Atrial fibrillation Technical Quality: Adequate MEASUREMENTS (Male / Female) Normal Values 2D ECHO LV Diastolic Diameter PLAX 4.4 cm 4.2 - 5.9 / 3.9 - 5.3 cm LV Systolic Diameter PLAX 3.3 cm IVS Diastolic Thickness 1.2 cm 0.6 - 1.0 / 0.6 - 0.9 cm IVS Systolic Thickness 1.2 cm LVPW Diastolic Thickness 1.6 cm 0.6 - 1.0 / 0.6 - 0.9 cm LVPW Systolic Thickness 2.0 cm LVOT Diameter 2.1 cm LV Ejection Fraction 2D Teich 50.7 % LV Ejection Fraction MOD 2C 63.7 % LV Ejection Fraction 2C AL 64.4 % LA Diameter 4.0 cm LA Width 3.4 cm LA Height 5.2 cm RA Width 3.1 cm RA Height 5.6 cm Aorta at Sinotubular Diameter 3.0 cm M-MODE Aortic Annulus Diameter 3.3 cm LA Ao Ratio MM 1.1 MV E Point Septal Separation 0.7 cm DOPPLER AV Peak Velocity 108.3 cm/s LVOT Peak Velocity 101.0 cm/s AV Area Cont Eq vti 3.3 cm squared AV Area Cont Eq pk 3.4 cm squared MV Peak Velocity 92.0 cm/s MV Area PHT 4.8 cm squared MV E' Velocity 40.0 cm/s Mitral E to MV E' Ratio 6.6 Mitral E to LV E' Lateral Ratio 6.6 Mitral E to LV E' Septal Ratio 6.6 TR Peak Velocity 212.4 cm/s TR Peak Gradient 18.0 mmHg TR Mean Velocity 158.6 cm/s TR Mean Gradient 10.8 mmHg TR Velocity Time Integral 41.4 cm Right Atrial Pressure 8.0 mmHg Pulmonary Artery Systolic Pressu 26.0 mmHg PV Peak Velocity 119.0 cm/s RV Acceleration Time 0.1 s RV Ejection Time 0.3 s RV AcT/ET 0.5 FINDINGS Left Ventricle Left ventricle is normal in size. LV systolic function is normal with EF of 55 to 60%. No regional wall motion normalities are seen. Right Ventricle Normal in size and function Right Atrium Normal in size Left Atrium Normal in size Mitral Valve Mild mitral annular calcification is seen. Trace mitral regurgitation. Aortic Valve Structurally normal aortic valve. No significant aortic stenosis. Tricuspid Valve Mild tricuspid regurgitation. Pulmonary artery systolic pressure is normal. Pulmonic Valve Not well-visualized Pericardium Normal Aorta Ascending aorta is mildly dilated IVC Appears to be normal CONCLUSIONS LV systolic function is normal with EF 55 to 60% Mild mitral annular calcification is seen. Trace mitral regurgitation Mild tricuspid regurgitation Ascending aorta is mildly dilated. Compared to prior echocardiogram from 06/04/2020, no significant changes seen. Godwin Wilkes MD (Electronically Signed) Final Date: 08 June 2022 12:48 S
== END 2022-06-04 14:16 | disposition home or self-care (01) ==
LOC: RAD 14:16
PROVIDERS: PCP Family Medicine; Visit Provider Family Medicine
DX: I48.0 Paroxysmal atrial fibrillation (principal); I50.32 Chronic diastolic (congestive) heart failure; R06.00 Dyspnea, unspecified; R07.9 Chest pain, unspecified; R53.1 Weakness; I11.0 Hypertensive heart disease with heart failure
CPT/HCPCS: 93306

== ENCOUNTER → 2023-02-03 15:38 | Outpatient (BNVA) | payer OTHER, SELFPAY | PROVIDERS: PCP Family Medicine; Visit Provider Family Medicine | DX: I48.91 Unspecified atrial fibrillation (principal); E11.9 Type 2 diabetes mellitus without complications; I50.9 Heart failure, unspecified; I25.10 Atherosclerotic heart disease of native coronary artery without angina pectoris; R53.1 Weakness; M62.81 Muscle weakness (generalized); I48.0 Paroxysmal atrial fibrillation; I50.32 Chronic diastolic (congestive) heart failure | CPT/HCPCS: 80053; 80061; 82607; 83036; 83721; 84403; 84443; 85025 ==

== ENCOUNTER → 2023-05-08 09:43 | Outpatient (BNVA) | payer OTHER, SELFPAY | PROVIDERS: PCP Family Medicine; Visit Provider Family Medicine | DX: I48.91 Unspecified atrial fibrillation (principal); E11.9 Type 2 diabetes mellitus without complications; I50.9 Heart failure, unspecified; I10 Essential (primary) hypertension | CPT/HCPCS: 80053; 80061; 83036; 83880; 85025 ==

== ENCOUNTER → 2023-07-31 12:45 | Outpatient (BNVA) | payer OTHER, SELFPAY | PROVIDERS: PCP Family Medicine; Visit Provider Family Medicine | DX: I48.0 Paroxysmal atrial fibrillation (principal); I10 Essential (primary) hypertension; I25.10 Atherosclerotic heart disease of native coronary artery without angina pectoris; E11.9 Type 2 diabetes mellitus without complications | CPT/HCPCS: 80053; 83036 ==

== ENCOUNTER → 2023-10-29 09:54 | Outpatient (BNVA) | payer OTHER, SELFPAY | PROVIDERS: PCP Family Medicine; Visit Provider Family Medicine | DX: I10 Essential (primary) hypertension (principal); I50.32 Chronic diastolic (congestive) heart failure; I25.10 Atherosclerotic heart disease of native coronary artery without angina pectoris; I48.91 Unspecified atrial fibrillation | CPT/HCPCS: 80053; 80061; 83036; 83880; 85025 ==

== ENCOUNTER → 2024-02-02 14:01 | Outpatient (BNVA) | payer OTHER, SELFPAY | PROVIDERS: PCP Family Medicine; Visit Provider Family Medicine | DX: I10 Essential (primary) hypertension (principal); I25.10 Atherosclerotic heart disease of native coronary artery without angina pectoris; I48.0 Paroxysmal atrial fibrillation; E11.9 Type 2 diabetes mellitus without complications | CPT/HCPCS: 80053; 80061; 83036; 85025 ==

== ENCOUNTER → 2024-07-22 09:29 | Outpatient (BNVA) | payer OTHER, SELFPAY | PROVIDERS: PCP Family Medicine; Visit Provider Family Medicine | DX: I10 Essential (primary) hypertension (principal); I48.0 Paroxysmal atrial fibrillation; E11.9 Type 2 diabetes mellitus without complications | CPT/HCPCS: 80053; 80061; 83036; 83721 ==

== ENCOUNTER → 2024-08-03 16:04 | Outpatient (BNVA) | payer OTHER, SELFPAY | PROVIDERS: PCP Family Medicine; Visit Provider Internal Medicine | DX: I48.91 Unspecified atrial fibrillation (principal); I10 Essential (primary) hypertension; I50.32 Chronic diastolic (congestive) heart failure; I25.10 Atherosclerotic heart disease of native coronary artery without angina pectoris; R06.00 Dyspnea, unspecified; R07.9 Chest pain, unspecified; M19.90 Unspecified osteoarthritis, unspecified site | CPT/HCPCS: 73030 ==

== ENCOUNTER 2024-09-10 12:33 | Outpatient (CLI) | payer OTHER, SELFPAY ==
--- NOTE | 2024-09-10 12:45 | USCV_ITS ---
Ilan Ross Age: 54 Gender: M : 1970 Exam Date: 09/10/2024 12:51 Ordering Phys: Godwin Wilkes M.D ([email or web address]) Technologist: [place] [facility] [place]ication: afib sob BP: 0 / 88 HR: 106 Rhythm: Sinus Technical Quality: Adequate MEASUREMENTS (Male / Female) Normal Values 2D ECHO LV Diastolic Diameter PLAX 4.5 cm 4.2 - 5.9 / 3.9 - 5.3 cm IVS Diastolic Thickness 1.4 cm 0.6 - 1.0 / 0.6 - 0.9 cm IVS Systolic Thickness 2.3 cm LVPW Diastolic Thickness 1.4 cm 0.6 - 1.0 / 0.6 - 0.9 cm LVPW Systolic Thickness 2.0 cm LVOT Diameter 2.2 cm LV Ejection Fraction 2D Teich 66.0 % LV Ejection Fraction MOD 4C 65.8 % LV Ejection Fraction MOD 2C 65.8 % LV Ejection Fraction 2C AL 66.1 % LA Diameter 4.8 cm RA Systolic Volume 4C AL 61.8 ml RA Systolic Volume 4C MOD 59.9 ml Aorta at Sinotubular Diameter 4.6 cm M-MODE LA Ao Ratio MM 0.9 AV Cusp Separation MM 2.0 cm DOPPLER AV Peak Velocity 91.0 cm/s AV Area Cont Eq vti 4.1 cm squared AV Area Cont Eq pk 3.4 cm squared MV Peak Velocity 109.0 cm/s MV Area PHT 4.6 cm squared Mitral E to A Ratio 4.1 TR Peak Velocity 285.0 cm/s TR Peak Gradient 32.5 mmHg TV Peak E Velocity 89.0 cm/s PV Peak Velocity 101.0 cm/s FINDINGS Left Ventricle Left ventricle is normal in size. LV systolic function is normal with EF of 55-60%. No regional wall motion abnormalities are seen. Right Ventricle Normal in size and function Right Atrium Normal in size Left Atrium Dilated Mitral Valve Structurally normal mitral valve. Trace mitral regurgitation Aortic Valve Aortic valve is thickened. No significant stenosis or regurgitation Tricuspid Valve Insufficient TR jet to evaluate RVSP Pulmonic Valve Not well visualized Pericardium Normal Aorta Ascending aorta is dilated with diameter of 4.5 cm IVC Not visualized CONCLUSIONS LV systolic function is normal with EF of 55-60% Left atrial dilation Trace mitral regurgitation Ascending aorta is dilated Compared to prior echocardiogram from 2022, no significant changes are seen. Godwin Wilkes MD (Electronically Signed) Final Date: 19 Sep 2024 13:13 S
== END 2024-09-10 12:34 | disposition home or self-care (01) ==
LOC: RAD 12:36
PROVIDERS: PCP Family Medicine; Visit Provider Internal Medicine
DX: R06.00 Dyspnea, unspecified (principal); R07.9 Chest pain, unspecified; I51.7 Cardiomegaly; I35.8 Other nonrheumatic aortic valve disorders; I77.810 Thoracic aortic ectasia
CPT/HCPCS: 93306

== ENCOUNTER → 2024-11-16 11:45 | Outpatient (BNVA) | payer OTHER, SELFPAY | PROVIDERS: PCP Family Medicine; Visit Provider Family Medicine | DX: I10 Essential (primary) hypertension (principal); I50.32 Chronic diastolic (congestive) heart failure; I25.10 Atherosclerotic heart disease of native coronary artery without angina pectoris; E11.9 Type 2 diabetes mellitus without complications | CPT/HCPCS: 80053; 83036 ==

== ENCOUNTER → 2025-02-15 09:56 | Outpatient (BNVA) | payer OTHER, SELFPAY | PROVIDERS: PCP Family Medicine; Visit Provider Family Medicine | DX: I25.10 Atherosclerotic heart disease of native coronary artery without angina pectoris (principal); I10 Essential (primary) hypertension; E11.9 Type 2 diabetes mellitus without complications; R06.00 Dyspnea, unspecified | CPT/HCPCS: 80053; 80061; 83036; 83721; 85025 ==

== ENCOUNTER 2025-02-22 09:30 | Outpatient (CLI) | payer OTHER, SELFPAY ==
--- NOTE | 2025-02-22 09:45 | NMCV_ITS ---
NM bella perf SPECT r/s* [id number] Ilan Ross Age: 54 Gender: M : 1970 Exam Date: 02/22/2025 10:40 Ordering Phys: Mic Durand MD Technologist: EMILY Chen Exam Location: [facility] Indications: cp STRESS TEST Please see separate stress test report in [facility] for full findings IMAGE PROTOCOL Rest/Stress 1 Lexiscan Day Radiopharmaceutical Dose (mCi) Administration Site Administered by Rest: Tc-99m 10.8 IV Candice Alberts, PROGRAM OR PROJECT ADMINISTRATOR Sestamibi Stress:Tc-99m 32.5 IV Candice Sutherlandgle, PROGRAM OR PROJECT ADMINISTRATOR Sestamibi Rest: 22-Feb-2025 60 Discovery 630 Stress: 22-Feb-2025 30 Discovery 630 0.4mg Lexiscan. Images obtained in supine and prone position. SPECT RESULTS Technical Quality: Good Raw Data Analysis: Normal Image Corrections: Patient motion artifact - motion correction applied Summed Stress Score: 4 Summed Rest Score: 9 Summed Difference Score: 0 PERFUSION FINDINGS Medium sized area of fixed perfusion defect noted in basal distal inferior wall suggestive of old myocardial infarction without any reversibility FUNCTIONAL RESULTS (calculated via Gated SPECT) Stress Image LV EF (%): 62 Stress EDV (mL):152 TID: 1.07 Stress ESV (mL):58 FUNCTIONAL FINDINGS: Basal to distal inferior wall akinesis IMPRESSIONS Medium sized area of old myocardial infarction versus scarring noted in basal distal inferior wall without alicja-infarct ischemia. This study is negative for ischemia and suggestive of old myocardial infarction in RCA territory Zac Jenkins MD (Electronically Signed) Final Date: 24 February 2025 19:33 S
--- NOTE | 2025-02-22 09:45 | ECG_ITS ---
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 The perfusion scan will be documented separately. DATA: Baseline heart rate was 84 beats per minute. Baseline blood pressure was 137/100 millimeters of mercury. Target heart rate was 166. Maximum heart rate achieved was 90. which was 54% of the predicted target heart rate. Maximum blood pressure was millimeters of mercury. The reason for ending the test was completion of the protocol. The patient did not experience any symptoms. ELECTROCARDIOGRAM: BASELINE: Atrial fibrillation. Normal axis. Otherwise, no ST-T changes suggestive of ischemia noted. No arrhythmia noted. EXERCISE: After Lexiscan injection, no ST-T changes suggestive of ischemic noted. No arrhythmia noted. CONCLUSION: Please note due to baseline abnormality of the EKG specificity and sensitivity of the EKG portion of LexiScan MIBI stress test will be low 1. EKG not suggestive of ischemia 2. Lexiscan injection unremarkable. 3. Perfusion scan will be documented separately. Electronically Signed On 03-09-2025 20:45:51 EARLY CHIL[employer]OD LEAD TEACHER by BOWEN PADRON [email or web address]
[2025-02-22 09:47] VITALS: BMI 38.9
[2025-02-22 11:34] VITALS: BP 138/99; PULSE 75
== END 2025-02-22 09:31 | disposition home or self-care (01) ==
PROVIDERS: PCP Family Medicine; Visit Provider Family Medicine
DX: I25.10 Atherosclerotic heart disease of native coronary artery without angina pectoris (principal); R93.1 Abnormal findings on diagnostic imaging of heart and coronary circulation; I48.91 Unspecified atrial fibrillation
CPT/HCPCS: 36415; 78452; 93017; 96374; A9500; J2785